=== PATIENT | female | born 1950 | race Two or more races ===

== ENCOUNTER 2016-11-08 07:57 | Inpatient (IN) | payer MEDICARE ==
[~2016-11-08] VITALS: Ht 152.4 cm; Wt 66.7 kg
[2016-11-08] MEDS ORDERED: fentaNYL 100 mcg/2 mL IV ONE (08:30)
[2016-11-08 08:35] LABS: MEAN CORPUSCULAR HEMOGLOBIN 30.3 PG (27.0-31.0); MEAN CORPUSCULAR HGB CONC 32.7 G/DL (32.0-36.0); MEAN CORPUSCULAR VOLUME 93 FL (80-99); PLATELET COUNT 198 K/UL (150-450); RED BLOOD COUNT 4.69 M/UL (4.20-5.40); RED CELL DISTRIBUTION WIDTH 12.4 % (11.6-14.8); WHITE BLOOD COUNT 9.6 K/UL (4.8-10.8)
[2016-11-08] MEDS ORDERED: OMEPRAZOLE10 M1 ORAL (08:36)
[2016-11-08 08:51] LABS: ALANINE AMINOTRANSFERASE 188 U/L (3-33); ALBUMIN/GLOBULIN RATIO 1.1 (1.0-2.7); ANION GAP 14 (5-15); ASPARTATE AMINO TRANSFERASE 285 U/L (5-40); CALCIUM 8.8 mg/dL (8.6-10.2); CARBON DIOXIDE 26 mEQ/L (20-30); CHLORIDE 99 mEQ/L (98-107); CREATININE 0.6 mg/dL (0.5-0.9); GLOMERULAR FILTRATION RATE > 60 mL/min (>60); HEMOLYSIS 37; LIPASE 30 U/L (< 60); POTASSIUM 4.1 mEQ/L (3.4-4.9); SODIUM 139 mEQ/L (135-145); TOTAL PROTEIN 7.6 g/dL (6.6-8.7)
[2016-11-08 08:57] LABS: TROPONIN I < 0.30 ng/mL (<=0.30)
[2016-11-08 09:01] VITALS: BP 155/64
--- NOTE | 2016-11-08 09:04 | Emergency Room Report ---
History of Present Illness General Chief Complaint: Abdominal Pain Source: Patient, Family Member Present Illness HPI 66YOF walk-in with 1 day of "not feeling well" including 1x nausea/vomiting, epigastric pain radiating up her chest and to her back. No fever/chills, cough , chest pain, SOB, urinary complaints, diarrhea, sick contacts, foreign travel. Endoscopy 1 year ago showed gastritis. Has taken omeprazole intermittently. Doesnt eat spicy food. S/p appendectomy distantly. Allergies: Coded Allergies: No Known Allergies (Unverified , 11/08/16) Patient History Past Medical History: other - gastritis, cholelithiasis Past Surgical History: appy, other - "ovarian surgery" Pertinent Family History: none Social History: Denies: alcohol use, drug use, smoking Now: No Nursing Documentation-[facility] Past Medical History: No History, Except For Hx Gastrointestinal Problems: Yes - GERD Review of Systems All Other Systems: negative except mentioned in HPI Physical Exam Vital Signs Date Time Temp Pulse Resp B/P Pulse Ox O2 Delivery O2 Flow Rate FiO2 11/08/16 08:02 97.7 72 17 155/80 98 Room Air Sp02 EP Interpretation: reviewed, abnormal General Appearance: normal inspection, well appearing, alert, GCS 15, non-toxic , mild distress, other - eyes closes, rubbing stomach, writhing Head: normocephalic, atraumatic Eyes: bilateral eye EOMI, bilateral eye PERRL ENT: normal ENT inspection, hearing grossly normal, normal voice Neck: normal inspection, full range of motion, supple, no bony tend Respiratory: normal inspection, lungs clear, normal breath sounds, no respiratory distress, no retraction, no wheezing Cardiovascular #1: regular rate, rhythm, no edema Gastrointestinal: normal inspection, normal bowel sounds, soft, no guarding, no hernia, no pulsatile mass, no rebound, other - Mild ttp epigastrium Genitourinary: no CVA tenderness Musculoskeletal: normal inspection, back normal, normal range of motion, Ney' s Sign negative Neurologic: normal inspection, alert, oriented x3, responsive, 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 I attest that this information is true, accurate and complete to the best of my knowledge. I understand that any falsification, omission, or concealment of material fact may subject me to administrative, civil, or criminal liability. This patient warrants hospital admission for extreme of age and has a condition that cannot be treated as outpatient. Diagnostic Impression: Primary Impression: Abdominal pain Qualified Codes: R10.13 - Epigastric pain Additional Impression: Cholecystitis ER Course 66YOF with epigastric pain for 1 day. VS notable for hypertension. Afebrile. Focal ttp on abd exam DDx includes gastritis, acute laura, cholelithiasis, colitis, ACS PLAN: Labs, IVF, analgesia, Abd sono, reassess Abd pain, nausea/vomiting - Afebrile. No leukocytosis - Elevated LFTs - + sonographic Olmos's sign and multiple gallstones on official sono and CBD 9mm. - Abx given - Blood Cx given - Dr Elias consulted for evaluation Endorsed to Dr Sheriff for med/surg admission at 1204pm. Last Vital Signs Date Time Temp Pulse Resp B/P Pulse Ox O2 Delivery O2 Flow Rate FiO2 11/08/16 08:02 97.7 72 17 155/80 98 Room Air Status: improved Disposition: HOME, SELF-CARE Referrals: NOT CHOSEN IPA/,REFERRING (PCP) JAYJAY BILLINGSLEY M.D. November 08, 2016 09:04
[2016-11-08 09:11] LABS: BILIRUBIN,DIRECT 0.6 mg/dL (0.1-0.3)
[2016-11-08 09:33] LABS: BAND NEUTROPHILS % (MANUAL) 0 % (0-8); BASOPHILS % (MANUAL) 0 % (0-2); EOSINOPHILS % (MANUAL) 0 % (0-3); LYMPHOCYTES % (MANUAL) 11 % (20-45); NEUTROPHILS % (MANUAL) 87 % (45-75); PLATELET ESTIMATE ADEQUATE; PLATELET MORPHOLOGY NORMAL; TOTAL CELLS COUNTED 100
[2016-11-08 10:00] VITALS: BP 142/53
[2016-11-08] MEDS ORDERED: Piperacillin/Tazobactam 3.375 GM in NS 110 ML IVPB ONE (10:30)
[2016-11-08 11:01] LABS: APPEARANCE,URINE SLIGHTLY CLOUDY; KETONES,URINE 1+ (NEGATIVE); LEUKOCYTE ESTERASE ,URINE 1+ (NEGATIVE); NITRITE,URINE NEGATIVE (NEGATIVE); PH,URINE 8 (4.5-8.0); PROTEIN,URINE NEGATIVE (NEGATIVE); UROBILINOGEN,URINE 1 MG/DL (0.0-1.0)
[2016-11-08] MEDS ORDERED: Zosyn 3.375gm inj ONE (11:04)
[2016-11-08] MEDS ORDERED: NS 110 ML ONE (11:04)
[2016-11-08 11:10] LABS: AMORPHOUS SEDIMENT,UR FEW /LPF; BACTERIA,URINE FEW /HPF; MUCUS,URINE FEW /LPF (NONE/OCC); SQUAMOUS EPITHELIAL CELL,UR FEW /LPF (NONE/OCC)
--- NOTE | 2016-11-08 11:55 | Diagnostic Imaging Report ---
Indication: Abdominal pain Technique: Peraza-scale and duplex images of the upper abdomen were obtained Comparison: None Findings: Gallbladder demonstrates gallstones. No gallbladder wall thickening or pericholecystic fluid. Sonographic Olmos's sign is positive, per technologist. Common bile duct measures 9 mm in diameter. No intrahepatic biliary ductal dilatation. Liver demonstrates diffusely increased echogenicity, consistent with diffuse hepatocellular disease, most likely fatty change. There is focal sparing in the usual location adjacent the gallbladder fossa. No focal abnormality. Portal vein and hepatic veins are patent. Pancreas is unremarkable. Spleen is unremarkable. Left kidney measures 10.2 cm in length. Right kidney measures 11.3 cm length. Both kidneys demonstrate normal echogenicity. There is no hydronephrosis. No focal abnormality . Non-aneurysmal abdominal aorta . No free intraperitoneal fluid Impression: Cholelithiasis. Positive sonographic Olmos's sign raises possibility of acute cholecystitis. Consider nuclear medicine hepatobiliary scan for further evaluation as clinically indicated Mild extrahepatic biliary ductal dilatation. Downstream obstruction not completely excludable. Correlate with liver function tests, consider MRCP further evaluation as clinically indicated Liver demonstrates diffusely increased echogenicity, consistent with diffuse hepatocellular disease, most likely fatty change.
[2016-11-08] MEDS ORDERED: Morphine Sulfate 2mg/ml Inj IVP PRN (12:15)
[2016-11-08] MEDS ORDERED: Mylanta II UD 30ml ORAL PRN (12:15)
[2016-11-08] MEDS ORDERED: Nitroglycerin Subl 0.4mg tab (Bottle Of 25) SL PRN (12:15)
[2016-11-08 12:22] VITALS: BP 126/60
--- NOTE | 2016-11-08 13:22 | Consultation ---
History of Present Illness General Date patient seen: November 08, 2016 Chief Complaint: Abdominal Pain Reason for Consultation: abdominal pain Present Illness HPI 66F presented to ED complaining of acute onset epigastric / RUQ abdominal pain x 1-2 days. As per patient, she was in her normal state of health until 2 days ago when she started feeling a little unwell. Then 1 day ago while having a large meal she developed acute epigastric and RUQ abdominal pain. Pain described as cramping RUQ pain that was 8/10 at max and intermittent. Pain better with pain medication and worse with palpation. She initially thought it would improve and did not seek medical attention. She went to sleep but work up this morning feeling worse. She then developed nausea and non bloody emesis this AM. She then decided to seek medical attention and came to ED for evaluation. In ED she was noted to have elevated lft's and ultrasound demonstrating stones and +Olmos's. Surgery called to evaluate. Currently no n /v/f/c. Still has some cramping epigastric and RUQ pain but improved since administered pain meds. Last BM this AM and normal. Allergies: Coded Allergies: No Known Allergies (Unverified , 11/08/16) Medication History Scheduled Omeprazole (Omeprazole), Unknown Dose ORAL DAILY, (Reported) Patient History History Provided By: Patient, Family Member Healthcare decision maker Resuscitation status Advanced Directive on File Past Medical/Surgical History Past Medical/Surgical History: (1) Cholecystitis (2) History of appendectomy (3) Abdominal pain Review of Systems Constitutional: Denies: chills, fever, malaise, no symptoms, other, see HPI, sweats, weakness Eye: Denies: acuity changes, blurred vision, discharge, double vision, eye pain , no symptoms, nose congestion, nose pain, other, see HPI, tearing ENT: Denies: ear discharge, ear pain, hearing loss, mouth pain, nasal discharge , no symptoms, nose congestion, nose pain, other, see HPI, throat pain, throat swelling Respiratory: Denies: BECKMAN, cough, no symptoms, orthopnea, other, see HPI, shortness of breath, sputum, stridor, wheezing Gastrointestinal: Reports: abdominal pain, nausea, vomiting Genitourinary: Denies: discharge, dysuria, frequency, hematuria, incontinence, no symptoms, other, pain, retention, see HPI, urgency, vag bleed/dc Musculoskeletal: Denies: back pain, gout, joint pain, joint swelling, muscle pain, muscle stiffness, no symptoms, other, see HPI Skin: Denies: change in color, change in hair/nails, dryness, lesions, no symptoms, other, rash, see HPI Psychiatric: Denies: HI, SI, anxiety, depressed feelings, emotional problems, hallucinations, no symptoms, other, prior hx, see HPI Neurological: Denies: dizziness, focal weakness, headache, no symptoms, numbness, other, paresthesia, see HPI, seizure, syncope, tingling, tremors Endocrine: Denies: excessive sweating, flushing, increased thirst, increased urine, intolerance to temperature, no symptoms, other, see HPI, unexplained weight loss Hematologic/Lymphatic: Denies: anemia, blood clots, diathesis, easy bleeding, easy bruising, no symptoms, other, see HPI, swollen glands All Other Systems: negative except mentioned in HPI Physical Exam General Appearance: WD/WN, no apparent distress, alert Lines, tubes and drains: peripheral HEENT: normocephalic, PERRL Neck: normal inspection Respiratory/Chest: lungs clear, normal breath sounds, no respiratory distress, no accessory muscle use Cardiovascular/Chest: normal peripheral pulses, normal rate, regular rhythm Abdomen: normal bowel sounds, soft, no organomegaly, no mass, tender - RUQ tenderness on exam +Olmos's Extremities: normal range of motion Skin Exam: normal pigmentation 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, alert, oriented x 3 Last 24 Hour Vital Signs Date Time Temp Pulse Resp B/P Pulse Ox O2 Delivery O2 Flow Rate FiO2 11/08/16 12:45 97.7 62 29 126/60 100 Room Air 11/08/16 12:22 62 29 126/60 100 Room Air 11/08/16 10:00 64 16 142/53 99 Room Air 11/08/16 09:24 97.7 11/08/16 09:01 66 14 155/64 100 Room Air 11/08/16 08:02 97.7 72 17 155/80 98 Room Air Laboratory Tests Test 11/08/16 08:25 11/08/16 09:00 White Blood Count 9.6 K/UL (4.8-10.8) Red Blood Count 4.69 M/UL (4.20-5.40) Hemoglobin 14.2 G/DL (12.0-16.0) Hematocrit 43.5 % (37.0-47.0) Mean Corpuscular Volume 93 FL (80-99) Mean Corpuscular Hemoglobin 30.3 PG (27.0-31.0) Mean Corpuscular Hemoglobin Concent 32.7 G/DL (32.0-36.0) Red Cell Distribution Width 12.4 % (11.6-14.8) Platelet Count 198 K/UL (150-450) Mean Platelet Volume 8.0 FL (6.5-10.1) Neutrophils (%) (Auto) % (45.0-75.0) Lymphocytes (%) (Auto) % (20.0-45.0) Monocytes (%) (Auto) % (1.0-10.0) Eosinophils (%) (Auto) % (0.0-3.0) Basophils (%) (Auto) % (0.0-2.0) Differential Total Cells Counted 100 Neutrophils % (Manual) 87 % (45-75) H Lymphocytes % (Manual) 11 % (20-45) L Monocytes % (Manual) 2 % (1-10) Eosinophils % (Manual) 0 % (0-3) Basophils % (Manual) 0 % (0-2) Band Neutrophils 0 % (0-8) Platelet Estimate Adequate Platelet Morphology Normal Red Blood Cell Morphology Normal Sodium Level 139 mEQ/L (135-145) Potassium Level 4.1 mEQ/L (3.4-4.9) Chloride Level 99 mEQ/L (98-107) Carbon Dioxide Level 26 mEQ/L (20-30) Anion Gap 14 (5-15) Blood Urea Nitrogen 14 mg/dL (7-23) Creatinine 0.6 mg/dL (0.5-0.9) Estimat Glomerular Filtration Rate > 60 mL/min (>60) Glucose Level 158 mg/dL (74-106) H Calcium Level 8.8 mg/dL (8.6-10.2) Total Bilirubin 1.2 mg/dL (0.0-1.2) Direct Bilirubin 0.6 mg/dL (0.1-0.3) H Aspartate Amino Transf (AST/SGOT) 285 U/L (5-40) H Alanine Aminotransferase (ALT/SGPT) 188 U/L (3-33) H Alkaline Phosphatase 62 U/L (35-104) Troponin I < 0.30 ng/mL (<=0.30) Total Protein 7.6 g/dL (6.6-8.7) Albumin 4.1 g/dL (3.5-5.2) Globulin 3.5 g/dL Albumin/Globulin Ratio 1.1 (1.0-2.7) Lipase 30 U/L (< 60) Urine Color Yellow Urine Appearance Slightly cloudy Urine pH 8 (4.5-8.0) Urine Specific [place] 1.010 (1.005-1.035) Urine Protein Negative (NEGATIVE) Urine Glucose (UA) Negative (NEGATIVE) Urine Ketones 1+ (NEGATIVE) H Urine Occult Blood 2+ (NEGATIVE) H Urine Nitrite Negative (NEGATIVE) Urine Bilirubin Negative (NEGATIVE) Urine Urobilinogen 1 MG/DL (0.0-1.0) H Urine Leukocyte Esterase 1+ (NEGATIVE) H Urine RBC 2-4 /HPF (0 - 2) H Urine WBC 2-4 /HPF (0 - 2) Urine Squamous Epithelial Cells Few /LPF (NONE/OCC) Urine Amorphous Sediment Few /LPF (NONE) H Urine Bacteria Few /HPF (NONE) Urine Mucus Few /LPF (NONE/OCC) H Height (Feet): 5 Weight (Pounds): 149 Medications Current Medications Medications (Trade) Dose Ordered Sig/Kyle Route PRN Reason Start Time Stop Time Status Last Admin Dose Admin Acetaminophen (Tylenol) 650 mg Q4H PRN ORAL T>100.5 11/08/16 12:15 12/08/16 12:14 Al Hydroxide/Mg Hydroxide (Mylanta II) 30 ml Q6H PRN ORAL dyspepsia 11/08/16 12:15 12/08/16 12:14 Dextrose STAT PRN IV Hypoglycemia 11/08/16 12:15 12/08/16 12:14 Dextrose/Sodium Chloride (D5 0.45% NS) 1,000 ml @ 75 mls/hr [id number] IV 11/08/16 13:00 12/08/16 12:59 Diphenhydramine HCl (Benadryl) 25 mg Q6H PRN ORAL Itching/Pruritis 11/08/16 12:15 12/08/16 12:14 Heparin Sodium (Porcine) (Heparin 5000 units/ml) 5,000 units EVERY 12 HOURS SUBQ 11/08/16 21:00 12/08/16 20:59 Morphine Sulfate (Morphine Sulfate) 2 mg Q4H PRN IVP severe Pain (Pain Scale 7-10) 11/08/16 12:15 11/15/16 12:14 Nitroglycerin (Ntg) 0.4 mg Q5M X 3 DOSES PRN SL Prn Chest Pain 11/08/16 12:15 12/08/16 12:14 Ondansetron HCl (Zofran) 4 mg Q6H PRN IVP Nausea & Vomiting 11/08/16 12:15 12/08/16 12:14 Pantoprazole (Protonix) 40 mg DAILY IVP 11/09/16 09:00 12/09/16 08:59 Piperacillin Sod/ Tazobactam Sod/ Sodium Chloride (Zosyn/Sodium Chloride) 110 ml @ 27.5 mls/hr EVERY 8 HOURS IVPB 11/08/16 14:00 11/15/16 13:59 Polyethylene Glycol (Miralax) 17 gm HSPRN PRN ORAL Constipation 11/08/16 21:00 12/08/16 20:59 Temazepam (Restoril) 15 mg HSPRN PRN ORAL Insomnia 11/08/16 21:00 11/15/16 20:59 Assessment/Plan Problem List: (1) Cholecystitis Assessment & Plan: 66 F w/ acute cholecystitis. Afebrile, HD stable, exam with +Olmos's sign, elevated LFT's, normal lipase. Ultrasound with cholelithiasis. Plan: NPO IV fluids IV Abx Repeat LFT's in AM. if elevated will need further testing. If improved will discuss cholecystectomy with patient. ICD Codes: K81.9 - Cholecystitis, unspecified SNOMED: [id number], [id number] Sudarshan Perez November 08, 2016 13:22
[2016-11-08] MEDS: D5 1/2NS 1,000 ML IV SCH (14:36)
[2016-11-08] MEDS: Piperacillin/Tazobactam 3.375 GM in NS 110 ML IVPB SCH ×2 (14:46→21:56)
[2016-11-08 15:32] LABS: PROTHROMBIN TIME 9.8 SEC (9.30-11.50)
--- NOTE | 2016-11-08 15:43 | GI Initial Consult Note ---
MindiQiana Johnson N.P. 11/08/16 1543: History of Present Illness General Date patient seen: November 08, 2016 Time patient seen: 15:30 Reason for Hospitalization: Abdominal Pain Referring physician: SAFIA POLK Reason for Consultation: abdominal pain Present Illness HPI 66YOF walk-in with 1 day of "not feeling well" including 1x nausea/vomiting, epigastric pain radiating up her chest and to her back. No fever/chills, cough , chest pain, SOB, urinary complaints, diarrhea, sick contacts, foreign travel. Endoscopy 1 year ago showed gastritis. Has taken omeprazole intermittently. Doesn't eat spicy food. S/p appendectomy distantly. HPI as noted above. GI consulted for abdominal pain. As per patient, she was in her normal state of health until 2 days ago when she started feeling a little unwell. Then 1 day ago while having a large meal she developed acute epigastric and RUQ abdominal pain. Pain described as cramping RUQ pain that was 8/10 at max and intermittent. Pain better with pain medication and worse with palpation. She initially thought it would improve and did not seek medical attention. She went to sleep but work up this morning feeling worse. She then developed nausea and non bloody emesis this AM. She then decided to seek medical attention and came to ED for evaluation. In ED she was noted to have elevated lft's and ultrasound demonstrating stones and +Olmos's. Currently no n/v/f/c. Still has some cramping epigastric and RUQ pain but improved since administered pain meds. Last BM this AM and normal. Last colonoscopy 10+ years per patient. Home Meds Reported Medications Omeprazole (OMEPRAZOLE) 10 Mg Capsule., ORAL DAILY, #30 CAP 0 Refills 11/08/16 Med list reviewed/reconciled: Yes Allergies: Coded Allergies: No Known Allergies (Unverified , 11/08/16) Patient History History Provided By: Patient, Medical Record [facility] Narrative Past Medical History: other - gastritis, cholelithiasis Past Surgical History: appy, other - "ovarian surgery" Pertinent Family History: none Social History: Denies: alcohol use, drug use, smoking Now: No Nursing Documentation-PM Past Medical History: No History, Except For Hx Gastrointestinal Problems: Yes - GERD Social History: Denies: alcohol use, drug use, other, smoking Review of Systems All Other Systems: negative except mentioned in HPI Physical Exam Vital Signs Date Time Temp Pulse Resp B/P Pulse Ox O2 Delivery O2 Flow Rate FiO2 11/08/16 08:02 97.7 72 17 155/80 98 Room Air Sp02 EP Interpretation: reviewed Labs Laboratory Tests Test 11/08/16 08:25 11/08/16 09:00 11/08/16 14:40 White Blood Count 9.6 K/UL (4.8-10.8) Red Blood Count 4.69 M/UL (4.20-5.40) Hemoglobin 14.2 G/DL (12.0-16.0) Hematocrit 43.5 % (37.0-47.0) Mean Corpuscular Volume 93 FL (80-99) Mean Corpuscular Hemoglobin 30.3 PG (27.0-31.0) Mean Corpuscular Hemoglobin Concent 32.7 G/DL (32.0-36.0) Red Cell Distribution Width 12.4 % (11.6-14.8) Platelet Count 198 K/UL (150-450) Mean Platelet Volume 8.0 FL (6.5-10.1) Neutrophils (%) (Auto) % (45.0-75.0) Lymphocytes (%) (Auto) % (20.0-45.0) Monocytes (%) (Auto) % (1.0-10.0) Eosinophils (%) (Auto) % (0.0-3.0) Basophils (%) (Auto) % (0.0-2.0) Differential Total Cells Counted 100 Neutrophils % (Manual) 87 % (45-75) H Lymphocytes % (Manual) 11 % (20-45) L Monocytes % (Manual) 2 % (1-10) Eosinophils % (Manual) 0 % (0-3) Basophils % (Manual) 0 % (0-2) Band Neutrophils 0 % (0-8) Platelet Estimate Adequate Platelet Morphology Normal Red Blood Cell Morphology Normal Sodium Level 139 mEQ/L (135-145) Potassium Level 4.1 mEQ/L (3.4-4.9) Chloride Level 99 mEQ/L (98-107) Carbon Dioxide Level 26 mEQ/L (20-30) Anion Gap 14 (5-15) Blood Urea Nitrogen 14 mg/dL (7-23) Creatinine 0.6 mg/dL (0.5-0.9) Estimat Glomerular Filtration Rate > 60 mL/min (>60) Glucose Level 158 mg/dL (74-106) H Calcium Level 8.8 mg/dL (8.6-10.2) Total Bilirubin 1.2 mg/dL (0.0-1.2) Direct Bilirubin 0.6 mg/dL (0.1-0.3) H Aspartate Amino Transf (AST/SGOT) 285 U/L (5-40) H Alanine Aminotransferase (ALT/SGPT) 188 U/L (3-33) H Alkaline Phosphatase 62 U/L (35-104) Troponin I < 0.30 ng/mL (<=0.30) Total Protein 7.6 g/dL (6.6-8.7) Albumin 4.1 g/dL (3.5-5.2) Globulin 3.5 g/dL Albumin/Globulin Ratio 1.1 (1.0-2.7) Lipase 30 U/L (< 60) Urine Color Yellow Urine Appearance Slightly cloudy Urine pH 8 (4.5-8.0) Urine Specific [place] 1.010 (1.005-1.035) Urine Protein Negative (NEGATIVE) Urine Glucose (UA) Negative (NEGATIVE) Urine Ketones 1+ (NEGATIVE) H Urine Occult Blood 2+ (NEGATIVE) H Urine Nitrite Negative (NEGATIVE) Urine Bilirubin Negative (NEGATIVE) Urine Urobilinogen 1 MG/DL (0.0-1.0) H Urine Leukocyte Esterase 1+ (NEGATIVE) H Urine RBC 2-4 /HPF (0 - 2) H Urine WBC 2-4 /HPF (0 - 2) Urine Squamous Epithelial Cells Few /LPF (NONE/OCC) Urine Amorphous Sediment Few /LPF (NONE) H Urine Bacteria Few /HPF (NONE) Urine Mucus Few /LPF (NONE/OCC) H Prothrombin Time 9.8 SEC (9.30-11.50) Prothromb Time International Ratio 1.0 (0.9-1.1) Activated Partial Thromboplast Time 26 SEC (23-33) General Appearance: well appearing, no apparent distress, alert Head: normocephalic EENT: normal ENT inspection Neck: supple Respiratory: normal breath sounds, no respiratory distress Cardiovascular: normal rate Gastrointestinal: tenderness - epigastric/RUQ Rectal: deferred Genitourinary: no CVA tenderness Musculoskeletal: back normal Neurologic: normal inspection, alert, oriented x3, responsive Psychiatric: normal inspection, judgement/insight normal, memory normal Skin: normal inspection, normal color, no rash, warm/dry Lymphatic: normal inspection, no adenopathy Current Medications Current Medications Medications (Trade) Dose Ordered Sig/Kyle Route PRN Reason Start Time Stop Time Status Last Admin Dose Admin Acetaminophen (Tylenol) 650 mg Q4H PRN ORAL T>100.5 11/08/16 12:15 12/08/16 12:14 Al Hydroxide/Mg Hydroxide (Mylanta II) 30 ml Q6H PRN ORAL dyspepsia 11/08/16 12:15 12/08/16 12:14 Dextrose STAT PRN IV Hypoglycemia 11/08/16 12:15 12/08/16 12:14 Dextrose/Sodium Chloride (D5 0.45% NS) 1,000 ml @ 75 mls/hr [id number] IV 11/08/16 13:00 12/08/16 12:59 11/08/16 14:36 Diphenhydramine HCl (Benadryl) 25 mg Q6H PRN ORAL Itching/Pruritis 11/08/16 12:15 12/08/16 12:14 Heparin Sodium (Porcine) (Heparin 5000 units/ml) 5,000 units EVERY 12 HOURS SUBQ 11/08/16 21:00 12/08/16 20:59 Morphine Sulfate (Morphine Sulfate) 2 mg Q4H PRN IVP severe Pain (Pain Scale 7-10) 11/08/16 12:15 11/15/16 12:14 Nitroglycerin (Ntg) 0.4 mg Q5M X 3 DOSES PRN SL Prn Chest Pain 11/08/16 12:15 12/08/16 12:14 Ondansetron HCl (Zofran) 4 mg Q6H PRN IVP Nausea & Vomiting 11/08/16 12:15 12/08/16 12:14 Pantoprazole (Protonix) 40 mg DAILY IVP 11/09/16 09:00 12/09/16 08:59 Piperacillin Sod/ Tazobactam Sod/ Sodium Chloride (Zosyn/Sodium Chloride) 110 ml @ 27.5 mls/hr EVERY 8 HOURS IVPB 11/08/16 14:00 11/15/16 13:59 11/08/16 14:46 Polyethylene Glycol (Miralax) 17 gm HSPRN PRN ORAL Constipation 11/08/16 21:00 12/08/16 20:59 Temazepam (Restoril) 15 mg HSPRN PRN ORAL Insomnia 11/08/16 21:00 11/15/16 20:59 GI: Plan Problems: (1) GERD (gastroesophageal reflux disease) (2) Abdominal pain (3) Cholecystitis (4) History of appendectomy Plan Abdominal U/S >> cholelithiasis exam with +Olmso's sign elevated LFT's normal lipase fu surgical recs maintain NPO + IVFs IV Abx cont ppi monitor LFTs pain mgmt fu labs Discussed with Dr. Fink. Thank you for referring this patient, we will follow. JAVIER FINK 11/09/16 1202: History of Present Illness General Reason for Hospitalization: Abdominal Pain Present Illness Home Meds Reported Medications Omeprazole (OMEPRAZOLE) 10 Mg Capsule., ORAL DAILY, #30 CAP 0 Refills 11/08/16 Allergies: Coded Allergies: No Known Allergies (Unverified , 11/08/16) GI: Plan Plan The patient was seen and examined at bedside and all new and available data was reviewed in the patients chart. I agree with the above findings, impression and plan. (Patient seen earlier today. Signature stamp does not reflect patient encounter time.). -Shaila Marmolejo MDh Alex N.PValeria November 08, 2016 15:43 JAVIER FINK November 09, 2016 12:02
[2016-11-08 16:15] VITALS: BP 134/68
[2016-11-08 20:00] VITALS: BP 122/70
[2016-11-08] MEDS ORDERED: Miralax 17gm pkt ORAL PRN (21:00)
[2016-11-08] MEDS: Heparin 5000 units/ml inj SUBQ SCH (21:00)
--- NOTE | 2016-11-08 23:12 | History and Physical ---
History of Present Illness General Reason for Hospitalization: Abdominal Pain Present Illness Allergies: Coded Allergies: No Known Allergies (Unverified , 11/08/16) Medication History Scheduled Omeprazole (Omeprazole), Unknown Dose ORAL DAILY, (Reported) Patient History Healthcare decision maker spouse Resuscitation status Full Code Advanced Directive on File Physical Exam Last 24 Hour Vital Signs Date Time Temp Pulse Resp B/P Pulse Ox O2 Delivery O2 Flow Rate FiO2 11/08/16 20:00 98.2 75 20 122/70 96 Room Air 11/08/16 16:15 97.1 74 20 134/68 99 Room Air 11/08/16 12:45 97.7 62 29 126/60 100 Room Air 11/08/16 12:22 62 29 126/60 100 Room Air 11/08/16 10:00 64 16 142/53 99 Room Air 11/08/16 09:24 97.7 11/08/16 09:01 66 14 155/64 100 Room Air 11/08/16 08:02 97.7 72 17 155/80 98 Room Air Laboratory Tests Test 11/08/16 08:25 11/08/16 09:00 11/08/16 14:40 White Blood Count 9.6 K/UL (4.8-10.8) Red Blood Count 4.69 M/UL (4.20-5.40) Hemoglobin 14.2 G/DL (12.0-16.0) Hematocrit 43.5 % (37.0-47.0) Mean Corpuscular Volume 93 FL (80-99) Mean Corpuscular Hemoglobin 30.3 PG (27.0-31.0) Mean Corpuscular Hemoglobin Concent 32.7 G/DL (32.0-36.0) Red Cell Distribution Width 12.4 % (11.6-14.8) Platelet Count 198 K/UL (150-450) Mean Platelet Volume 8.0 FL (6.5-10.1) Neutrophils (%) (Auto) % (45.0-75.0) Lymphocytes (%) (Auto) % (20.0-45.0) Monocytes (%) (Auto) % (1.0-10.0) Eosinophils (%) (Auto) % (0.0-3.0) Basophils (%) (Auto) % (0.0-2.0) Differential Total Cells Counted 100 Neutrophils % (Manual) 87 % (45-75) H Lymphocytes % (Manual) 11 % (20-45) L Monocytes % (Manual) 2 % (1-10) Eosinophils % (Manual) 0 % (0-3) Basophils % (Manual) 0 % (0-2) Band Neutrophils 0 % (0-8) Platelet Estimate Adequate Platelet Morphology Normal Red Blood Cell Morphology Normal Sodium Level 139 mEQ/L (135-145) Potassium Level 4.1 mEQ/L (3.4-4.9) Chloride Level 99 mEQ/L (98-107) Carbon Dioxide Level 26 mEQ/L (20-30) Anion Gap 14 (5-15) Blood Urea Nitrogen 14 mg/dL (7-23) Creatinine 0.6 mg/dL (0.5-0.9) Estimat Glomerular Filtration Rate > 60 mL/min (>60) Glucose Level 158 mg/dL (74-106) H Calcium Level 8.8 mg/dL (8.6-10.2) Total Bilirubin 1.2 mg/dL (0.0-1.2) Direct Bilirubin 0.6 mg/dL (0.1-0.3) H Aspartate Amino Transf (AST/SGOT) 285 U/L (5-40) H Alanine Aminotransferase (ALT/SGPT) 188 U/L (3-33) H Alkaline Phosphatase 62 U/L (35-104) Troponin I < 0.30 ng/mL (<=0.30) Total Protein 7.6 g/dL (6.6-8.7) Albumin 4.1 g/dL (3.5-5.2) Globulin 3.5 g/dL Albumin/Globulin Ratio 1.1 (1.0-2.7) Lipase 30 U/L (< 60) Urine Color Yellow Urine Appearance Slightly cloudy Urine pH 8 (4.5-8.0) Urine Specific [place] 1.010 (1.005-1.035) Urine Protein Negative (NEGATIVE) Urine Glucose (UA) Negative (NEGATIVE) Urine Ketones 1+ (NEGATIVE) H Urine Occult Blood 2+ (NEGATIVE) H Urine Nitrite Negative (NEGATIVE) Urine Bilirubin Negative (NEGATIVE) Urine Urobilinogen 1 MG/DL (0.0-1.0) H Urine Leukocyte Esterase 1+ (NEGATIVE) H Urine RBC 2-4 /HPF (0 - 2) H Urine WBC 2-4 /HPF (0 - 2) Urine Squamous Epithelial Cells Few /LPF (NONE/OCC) Urine Amorphous Sediment Few /LPF (NONE) H Urine Bacteria Few /HPF (NONE) Urine Mucus Few /LPF (NONE/OCC) H Prothrombin Time 9.8 SEC (9.30-11.50) Prothromb Time International Ratio 1.0 (0.9-1.1) Activated Partial Thromboplast Time 26 SEC (23-33) Height (Feet): 5 Weight (Pounds): 147 Medications Current Medications Medications (Trade) Dose Ordered Sig/Kyle Route PRN Reason Start Time Stop Time Status Last Admin Dose Admin Acetaminophen (Tylenol) 650 mg Q4H PRN ORAL T>100.5 11/08/16 12:15 12/08/16 12:14 Al Hydroxide/Mg Hydroxide (Mylanta II) 30 ml Q6H PRN ORAL dyspepsia 11/08/16 12:15 12/08/16 12:14 Dextrose STAT PRN IV Hypoglycemia 11/08/16 12:15 12/08/16 12:14 Dextrose/Sodium Chloride (D5 0.45% NS) 1,000 ml @ 75 mls/hr [id number] IV 11/08/16 13:00 12/08/16 12:59 11/08/16 14:36 Diphenhydramine HCl (Benadryl) 25 mg Q6H PRN ORAL Itching/Pruritis 11/08/16 12:15 12/08/16 12:14 Heparin Sodium (Porcine) (Heparin 5000 units/ml) 5,000 units EVERY 12 HOURS SUBQ 11/08/16 21:00 12/08/16 20:59 Morphine Sulfate (Morphine Sulfate) 2 mg Q4H PRN IVP severe Pain (Pain Scale 7-10) 11/08/16 12:15 11/15/16 12:14 Nitroglycerin (Ntg) 0.4 mg Q5M X 3 DOSES PRN SL Prn Chest Pain 11/08/16 12:15 12/08/16 12:14 Ondansetron HCl (Zofran) 4 mg Q6H PRN IVP Nausea & Vomiting 11/08/16 12:15 12/08/16 12:14 Pantoprazole (Protonix) 40 mg DAILY IVP 11/09/16 09:00 12/09/16 08:59 Piperacillin Sod/ Tazobactam Sod/ Sodium Chloride (Zosyn/Sodium Chloride) 110 ml @ 27.5 mls/hr EVERY 8 HOURS IVPB 11/08/16 14:00 11/15/16 13:59 11/08/16 21:56 Polyethylene Glycol (Miralax) 17 gm HSPRN PRN ORAL Constipation 11/08/16 21:00 12/08/16 20:59 Temazepam (Restoril) 15 mg HSPRN PRN ORAL Insomnia 11/08/16 21:00 11/15/16 20:59 SAFIA LORA November 08, 2016 23:12
[2016-11-09] MEDS: D5 1/2NS 1,000 ML IV SCH ×2 (02:20→15:14)
[2016-11-09] MEDS: Piperacillin/Tazobactam 3.375 GM in NS 110 ML IVPB SCH ×3 (05:58→21:22)
[2016-11-09 06:44] LABS: BASOPHILS % (AUTO) 0.8 % (0.0-2.0); EOSINOPHILS % (AUTO) 1.2 % (0.0-3.0); LYMPHOCYTES % (AUTO) 21.4 % (20.0-45.0); MEAN CORPUSCULAR HGB CONC 33.3 G/DL (32.0-36.0); MEAN CORPUSCULAR VOLUME 93 FL (80-99); MEAN PLATELET VOLUME 8.6 FL (6.5-10.1); MONOCYTES % (AUTO) 4.2 % (1.0-10.0); NEUTROPHILS % (AUTO) 72.5 % (45.0-75.0); PLATELET COUNT 186 K/UL (150-450); RED BLOOD COUNT 4.25 M/UL (4.20-5.40); RED CELL DISTRIBUTION WIDTH 12.3 % (11.6-14.8); WHITE BLOOD COUNT 5.4 K/UL (4.8-10.8)
[2016-11-09] MEDS: Heparin 5000 units/ml inj SUBQ SCH ×2 (08:03→21:21)
[2016-11-09] MEDS: Pantoprazole Inj IVP SCH (08:03)
[2016-11-09 08:06] LABS: ALBUMIN/GLOBULIN RATIO 1.2 (1.0-2.7); AMYLASE 183 U/L (10-110); ANION GAP 14 (5-15); ASPARTATE AMINO TRANSFERASE 744 U/L (5-40); CALCIUM 8.5 mg/dL (8.6-10.2); CARBON DIOXIDE 24 mEQ/L (20-30); CHLORIDE 102 mEQ/L (98-107); CREATININE 0.6 mg/dL (0.5-0.9); GLOMERULAR FILTRATION RATE > 60 mL/min (>60); HEMOLYSIS 10; LIPASE 54 U/L (< 60); POTASSIUM 3.7 mEQ/L (3.4-4.9); SODIUM 140 mEQ/L (135-145); TOTAL PROTEIN 6.5 g/dL (6.6-8.7)
[2016-11-09 08:17] VITALS: BP 113/68
[2016-11-09 08:21] LABS: BILIRUBIN,DIRECT 0.4 mg/dL (0.1-0.3)
[2016-11-09 08:22] LABS: ALANINE AMINOTRANSFERASE 939 U/L (3-33)
[2016-11-09 08:48] VITALS: BP 113/68
--- NOTE | 2016-11-09 11:09 | Consultation ---
Consult Note Consult Note ID Dic # [id number] EMA HILLMAN M.D. November 09, 2016 11:09
--- NOTE | 2016-11-09 11:54 | General Progress Note ---
Progress Note Progress Note Pt just went to MRI for MRCP. Nurse says pt. has no pain,no jaundice, no N/V. LFT'S show increase in Tot. Bili to 1.6 (from 1.4, also continued elevation of transaminases , and no significant direct Bili to support obstructive jaundice. ( Hepatitis)?? Will wait for result of MRCP before any recommendations. FLAQUITO EMANUEL November 09, 2016 11:54
--- NOTE | 2016-11-09 11:55 | General Progress Note ---
Progress Note Progress Note o further bleeding, colonoscopy shows diverticulosis, no mass. Hg 11. Nothing surgical at this time. FLAQUITO EMANUEL November 09, 2016 11:55
[2016-11-09 12:15] VITALS: BP 120/56
--- NOTE | 2016-11-09 13:37 | GI Progress Note ---
Assessment/Plan Problems: (1) Elevated amylase ICD Codes: R74.8 - Abnormal levels of other serum enzymes SNOMED: 654447483 (2) Elevated LFTs ICD Codes: R94.5 - Abnormal results of liver function studies SNOMED: 050088582 (3) Cholecystitis ICD Codes: K81.9 - Cholecystitis, unspecified SNOMED: 45788176, 80833626 (4) Abdominal pain ICD Codes: R10.9 - Unspecified abdominal pain SNOMED: 12558843 Qualifiers: Qualified Codes: R10.13 - Epigastric pain (5) GERD (gastroesophageal reflux disease) ICD Codes: K21.9 - Gastro-esophageal reflux disease without esophagitis SNOMED: 222354291 (6) History of appendectomy ICD Codes: Z90.49 - Acquired absence of other specified parts of digestive tract SNOMED: 268249277 Status: unchanged Status Narrative Discussed with Dr. Christensen. Assessment/Plan Abdominal U/S >> cholelithiasis exam with +Olmos's sign elevated LFT's elevated amylase/normal lipase fu surgical recs >> defer surgical procedures at this time and fu MRCP CLD, NPO @ [facility] for possible ERCP tomorrow. IV Abx cont ppi monitor LFTs >> rising pain mgmt fu hep panel fu labs Subjective Gastrointestinal/Abdominal: Reports: abdominal pain Objective Last 24 Hour Vital Signs Date Time Temp Pulse Resp B/P Pulse Ox O2 Delivery O2 Flow Rate FiO2 11/09/16 12:15 97.7 71 22 120/56 98 Room Air 11/09/16 08:48 97.5 66 15 113/68 98 Room Air 11/09/16 08:17 97.5 66 21 113/68 98 Room Air 11/08/16 20:00 98.2 75 20 122/70 96 Room Air 11/08/16 16:15 97.1 74 20 134/68 99 Room Air Intake and Output 11/08/16 11/09/16 19:00 07:00 Intake Total 110 ml 27.5 ml Balance 110 ml 27.5 ml Intake IV Total 110 ml 27.5 ml # Voids 1 2 # Bowel Movements 1 Laboratory Tests Test 11/08/16 14:40 11/09/16 05:45 Prothrombin Time 9.8 SEC (9.30-11.50) Prothromb Time International Ratio 1.0 (0.9-1.1) Activated Partial Thromboplast Time 26 SEC (23-33) 27 SEC (23-33) White Blood Count 5.4 K/UL (4.8-10.8) Red Blood Count 4.25 M/UL (4.20-5.40) Hemoglobin 13.2 G/DL (12.0-16.0) Hematocrit 39.6 % (37.0-47.0) Mean Corpuscular Volume 93 FL (80-99) Mean Corpuscular Hemoglobin 31.0 PG (27.0-31.0) Mean Corpuscular Hemoglobin Concent 33.3 G/DL (32.0-36.0) Red Cell Distribution Width 12.3 % (11.6-14.8) Platelet Count 186 K/UL (150-450) Mean Platelet Volume 8.6 FL (6.5-10.1) Neutrophils (%) (Auto) 72.5 % (45.0-75.0) Lymphocytes (%) (Auto) 21.4 % (20.0-45.0) Monocytes (%) (Auto) 4.2 % (1.0-10.0) Eosinophils (%) (Auto) 1.2 % (0.0-3.0) Basophils (%) (Auto) 0.8 % (0.0-2.0) Sodium Level 140 mEQ/L (135-145) Potassium Level 3.7 mEQ/L (3.4-4.9) Chloride Level 102 mEQ/L (98-107) Carbon Dioxide Level 24 mEQ/L (20-30) Anion Gap 14 (5-15) Blood Urea Nitrogen 8 mg/dL (7-23) Creatinine 0.6 mg/dL (0.5-0.9) Estimat Glomerular Filtration Rate > 60 mL/min (>60) Glucose Level 112 mg/dL (74-106) H Calcium Level 8.5 mg/dL (8.6-10.2) L Total Bilirubin 1.4 mg/dL (0.0-1.2) H Direct Bilirubin 0.4 mg/dL (0.1-0.3) H Aspartate Amino Transf (AST/SGOT) 744 U/L (5-40) H Alanine Aminotransferase (ALT/SGPT) 939 U/L (3-33) H Alkaline Phosphatase 82 U/L (35-104) Total Protein 6.5 g/dL (6.6-8.7) L Albumin 3.6 g/dL (3.5-5.2) Globulin 2.9 g/dL Albumin/Globulin Ratio 1.2 (1.0-2.7) Amylase Level 183 U/L (10-110) H Lipase 54 U/L (< 60) Hepatitis A IgM Antibody Pending Hepatitis B Surface Antigen Pending Hepatitis B Core IgM Antibody Pending Hepatitis C Antibody Pending Height (Feet): 5 Weight (Pounds): 147 General Appearance: no apparent distress, alert Cardiovascular: normal rate Respiratory/Chest: normal breath sounds Abdominal Exam: normal bowel sounds, non tender, soft Extremities: normal range of motion Qiana Obregon N.P. November 09, 2016 13:37
--- NOTE | 2016-11-09 13:44 | Diagnostic Imaging Report ---
Indication: Abnormal liver function tests, right upper quadrant abdominal pain Technique: Axial single shot fast spin echo breath hold, coronal single shot fast spin-echo breath hold, axial T2 FRFSE fat-saturated, 2-D thick slab MRCP, axial 2-D FIESTA fat-saturated, axial 3-D dual echo breath-hold, precontrast axial and postcontrast axial and coronal water weighted axial LAVA FLEX images of the abdomen Comparison: Reference made to ultrasound 11/08/2016 Findings: The gallbladder is filled with gallstones. There is equivocal mild thickening and edema of the gallbladder wall, but no pericholecystic inflammation. The common bile duct is ectatic, measuring 9 mm in diameter. No filling defects or other findings to suggest choledocholithiasis are evident. Pancreatic duct is mildly ectatic, measuring up to 4 mm in diameter. The liver demonstrates a cyst in segment 3. It is otherwise unremarkable. The pancreas, spleen, adrenals, kidneys are all unremarkable. The included bowel is unremarkable. Impression: Mildly dilated extrahepatic bile ducts, but no evidence of choledocholithiasis or downstream obstruction lesion. Significance therefore uncertain. Choledocholithiasis. There is evidence of some gallbladder wall thickening although no definite pericholecystic inflammation. Acute cholecystitis is not completely excludable. Consider nuclear medicine hepatobiliary scan for further evaluation as clinically indicated Nonspecific slight ectasia of the pancreatic duct Incidental finding of left lobe liver cyst
--- NOTE | 2016-11-09 15:23 | Pulmonology Progress Note ---
Assessment/Plan Problems: (1) Cholecystitis (2) Elevated LFTs (3) History of appendectomy Assessment/Plan NPO Iv fluids continue antibiotics Negative ERCP fo rCBD stone surgical f/u Subjective ROS Limited/Unobtainable: No Constitutional: Reports: no symptoms Respiratory: Reports: no symptoms Allergies: Coded Allergies: No Known Allergies (Unverified , 11/08/16) Objective Last 24 Hour Vital Signs Date Time Temp Pulse Resp B/P Pulse Ox O2 Delivery O2 Flow Rate FiO2 11/09/16 12:15 97.7 71 22 120/56 98 Room Air 11/09/16 08:48 97.5 66 15 113/68 98 Room Air 11/09/16 08:17 97.5 66 21 113/68 98 Room Air 11/08/16 20:00 98.2 75 20 122/70 96 Room Air 11/08/16 16:15 97.1 74 20 134/68 99 Room Air Intake and Output 11/08/16 11/09/16 19:00 07:00 Intake Total 110 ml 27.5 ml Balance 110 ml 27.5 ml Intake IV Total 110 ml 27.5 ml # Voids 1 2 # Bowel Movements 1 General Appearance: WD/WN HEENT: normocephalic, atraumatic Respiratory/Chest: chest wall non-tender, lungs clear Cardiovascular: normal peripheral pulses, normal rate Abdomen: normal bowel sounds, soft, non tender Genitourinary: normal external genitalia Extremities: no cyanosis Skin: no rash 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: ham stringer II-XII grossly normal, abnormal gait, normal mood/ affect Lymphatic: no neck adenopathy, no groin adenopathy Laboratory Tests 11/09/16 05:45: White Blood Count 5.4, Red Blood Count 4.25, Hemoglobin 13.2, Hematocrit 39.6, Mean Corpuscular Volume 93, Mean Corpuscular Hemoglobin 31.0, Mean Corpuscular Hemoglobin Concent 33.3, Red Cell Distribution Width 12.3, Platelet Count 186, Mean Platelet Volume 8.6, Neutrophils (%) (Auto) 72.5, Lymphocytes (%) (Auto) 21.4, Monocytes (%) (Auto) 4.2, Eosinophils (%) (Auto) 1.2, Basophils (%) (Auto ) 0.8, Activated Partial Thromboplast Time 27, Sodium Level 140, Potassium Level 3.7, Chloride Level 102, Carbon Dioxide Level 24, Anion Gap 14, Blood Urea Nitrogen 8, Creatinine 0.6, Estimat Glomerular Filtration Rate > 60, Glucose Level 112H, Calcium Level 8.5L, Total Bilirubin 1.4H, Direct Bilirubin 0.4H, Aspartate Amino Transf (AST/SGOT) 744H, Alanine Aminotransferase (ALT/SGPT ) 939H, Alkaline Phosphatase 82, Total Protein 6.5L, Albumin 3.6, Globulin 2.9, Albumin/Globulin Ratio 1.2, Amylase Level 183H, Lipase 54, Hepatitis A IgM Antibody [Pending], Hepatitis B Surface Antigen [Pending], Hepatitis B Core IgM Antibody [Pending], Hepatitis C Antibody [Pending] Current Medications Medications (Trade) Dose Ordered Sig/Kyle Route PRN Reason Start Time Stop Time Status Last Admin Dose Admin Acetaminophen (Tylenol) 650 mg Q4H PRN ORAL T>100.5 11/08/16 12:15 12/08/16 12:14 Al Hydroxide/Mg Hydroxide (Mylanta II) 30 ml Q6H PRN ORAL dyspepsia 11/08/16 12:15 12/08/16 12:14 Dextrose STAT PRN IV Hypoglycemia 11/08/16 12:15 12/08/16 12:14 Dextrose/Sodium Chloride (D5 0.45% NS) 1,000 ml @ 75 mls/hr [id number] IV 11/08/16 13:00 12/08/16 12:59 11/08/16 14:36 Diphenhydramine HCl (Benadryl) 25 mg Q6H PRN ORAL Itching/Pruritis 11/08/16 12:15 12/08/16 12:14 Heparin Sodium (Porcine) (Heparin 5000 units/ml) 5,000 units EVERY 12 HOURS SUBQ 11/08/16 21:00 12/08/16 20:59 Morphine Sulfate (Morphine Sulfate) 2 mg Q4H PRN IVP severe Pain (Pain Scale 7-10) 11/08/16 12:15 11/15/16 12:14 Nitroglycerin (Ntg) 0.4 mg Q5M X 3 DOSES PRN SL Prn Chest Pain 11/08/16 12:15 12/08/16 12:14 Ondansetron HCl (Zofran) 4 mg Q6H PRN IVP Nausea & Vomiting 11/08/16 12:15 12/08/16 12:14 Pantoprazole (Protonix) 40 mg DAILY IVP 11/09/16 09:00 12/09/16 08:59 11/09/16 08:03 Piperacillin Sod/ Tazobactam Sod/ Sodium Chloride (Zosyn/Sodium Chloride) 110 ml @ 27.5 mls/hr EVERY 8 HOURS IVPB 11/08/16 14:00 11/15/16 13:59 11/09/16 14:00 Polyethylene Glycol (Miralax) 17 gm HSPRN PRN ORAL Constipation 11/08/16 21:00 12/08/16 20:59 Temazepam (Restoril) 15 mg HSPRN PRN ORAL Insomnia 11/08/16 21:00 11/15/16 20:59 SAFIA LORA November 09, 2016 15:23
[2016-11-09 16:06] VITALS: BP 126/73
--- NOTE | 2016-11-09 18:32 | Consultation ---
DATE OF CONSULTATION: INFECTIOUS DISEASE CONSULTATION CONSULTING PHYSICIAN: Michael Santiago M.D. REFERRING PHYSICIAN: Kaitlynn Sheriff M.D. REASON FOR CONSULTATION: Evaluation of the patient for cholecystitis. HISTORY OF PRESENT ILLNESS: The patient is a 66-year-old female, with multiple medical problems, as listed below, who was admitted to this medical center because of abdominal pain. The patient was found to have abnormal liver functions. Ultrasound of the abdomen was positive for cholelithiasis and also the patient was found to have Olmos's sign. GI and surgical consultation is following. Infectious Disease consultation has been requested for further evaluation of the patient and antibiotic management. PAST MEDICAL HISTORY: GERD. MEDICATIONS: On Zosyn. ALLERGIES: No known drug allergies. SOCIAL HISTORY: Negative for alcohol, drug abuse, and smoking. FAMILY HISTORY: Noncontributory. PHYSICAL EXAMINATION: VITAL SIGNS: Pulse 86, respiratory rate 18, temperature 97.5 degrees, and blood pressure 113/68. HEENT: Mild pale conjunctivae. No icterus. NECK: No lymphadenopathy. CHEST: Coarse breathing sounds. HEART: S1 and S2. ABDOMEN: Soft. The patient has right upper quadrant tenderness with positive Olmos's sign with inspiration. EXTREMITIES: No cyanosis. NEUROLOGIC: Awake and alert. LABORATORY DATA: White blood cells 5.4, hemoglobin 13, and platelets 186,000. UA, unremarkable. AST 744, ALT 933, and alkaline phosphatase 82. Hepatitis panel is pending. Ultrasound of the abdomen, as mentioned above. MRCP is pending. ASSESSMENT: The patient is a 66-year-old female with multiple medical problems, as listed above, who has abnormal liver functions and right upper quadrant pain due to positive Olmos's sign. Ultrasound showed cholelithiasis and the patient's magnetic resonance cholangiopancreatography is pending. PLAN: 1. We will continue the patient on IV Zosyn. 2. Monitor CBC. 3. Monitor BMP. 4. Monitor cultures (blood). 5. Monitor liver function tests. 6. We will follow GI and surgical recommendations. 7. We will follow MRCP findings. 8. Based on the patient's clinical course and labs, we will do further recommendations. Thank you, Dr. Sheriff, for allowing me to participate in the care of this patient. I will follow the patient with you during this hospitalization. Michael Santiago M.D. DR: SHIRLEY JOB#: [id number] CC:
[2016-11-09 21:00] VITALS: BP 127/74
[2016-11-10] VITALS (7 sets, daily range): BP systolic 119–133; BP diastolic 65–78
[2016-11-10] MEDS: D5 1/2NS 1,000 ML IV SCH ×3 (04:58→18:10)
[2016-11-10] MEDS: Piperacillin/Tazobactam 3.375 GM in NS 110 ML IVPB SCH ×3 (05:34→21:58)
[2016-11-10 06:57] LABS: BASOPHILS % (AUTO) 1.1 % (0.0-2.0); EOSINOPHILS % (AUTO) 2.9 % (0.0-3.0); LYMPHOCYTES % (AUTO) 31.8 % (20.0-45.0); MEAN CORPUSCULAR HEMOGLOBIN 30.9 PG (27.0-31.0); MEAN CORPUSCULAR HGB CONC 33.3 G/DL (32.0-36.0); MEAN CORPUSCULAR VOLUME 93 FL (80-99); MEAN PLATELET VOLUME 7.4 FL (6.5-10.1); MONOCYTES % (AUTO) 5.5 % (1.0-10.0); NEUTROPHILS % (AUTO) 58.6 % (45.0-75.0); PLATELET COUNT 182 K/UL (150-450); RED BLOOD COUNT 4.09 M/UL (4.20-5.40); RED CELL DISTRIBUTION WIDTH 12.5 % (11.6-14.8)
[2016-11-10 07:09] LABS: ALANINE AMINOTRANSFERASE 582 U/L (3-33); ALBUMIN/GLOBULIN RATIO 1.2 (1.0-2.7); ANION GAP 13 (5-15); ASPARTATE AMINO TRANSFERASE 215 U/L (5-40); CALCIUM 8.5 mg/dL (8.6-10.2); CARBON DIOXIDE 25 mEQ/L (20-30); CHLORIDE 103 mEQ/L (98-107); CREATININE 0.5 mg/dL (0.5-0.9); GLOMERULAR FILTRATION RATE > 60 mL/min (>60); HEMOLYSIS 3; POTASSIUM 3.4 mEQ/L (3.4-4.9); SODIUM 141 mEQ/L (135-145); TOTAL PROTEIN 6.4 g/dL (6.6-8.7)
[2016-11-10] MEDS: Pantoprazole Inj IVP SCH (08:08)
[2016-11-10] MEDS: Heparin 5000 units/ml inj SUBQ SCH (08:18)
--- NOTE | 2016-11-10 10:20 | General Surgery Progress Note ---
General Surgery-Progress Note Subjective Symptoms: improved, pain absent, tolerating diet, passing flatus, BM Additional Comments patient seen and examined at bedside. no acute events. pain resolved. no n/v/ f/c. MRCP reviewed and no biliary obstruction but cholelithiasis and thickening. Objective Last 24 Hour Vital Signs Date Time Temp Pulse Resp B/P Pulse Ox O2 Delivery O2 Flow Rate FiO2 11/10/16 08:15 97.7 67 22 119/67 99 Room Air 11/10/16 04:00 97.4 69 18 119/69 96 Room Air 11/10/16 00:00 96.9 71 20 121/69 97 Room Air 11/09/16 21:00 98.4 68 18 127/74 Room Air 11/09/16 16:06 98.7 67 22 126/73 99 Room Air 11/09/16 12:15 97.7 71 22 120/56 98 Room Air I&O Intake and Output 11/09/16 11/10/16 19:00 07:00 Intake Total 822.5 ml 1052.5 ml Balance 822.5 ml 1052.5 ml Intake Oral 480 ml 540 ml IV Total 342.5 ml 512.5 ml # Voids 2 5 Cardiovascular: RSR Respiratory: clear Abdomen: soft, non-tender, present bowel sounds Laboratory Tests Test 11/10/16 05:43 White Blood Count 5.0 K/UL (4.8-10.8) Red Blood Count 4.09 M/UL (4.20-5.40) L Hemoglobin 12.6 G/DL (12.0-16.0) Hematocrit 37.9 % (37.0-47.0) Mean Corpuscular Volume 93 FL (80-99) Mean Corpuscular Hemoglobin 30.9 PG (27.0-31.0) Mean Corpuscular Hemoglobin Concent 33.3 G/DL (32.0-36.0) Red Cell Distribution Width 12.5 % (11.6-14.8) Platelet Count 182 K/UL (150-450) Mean Platelet Volume 7.4 FL (6.5-10.1) Neutrophils (%) (Auto) 58.6 % (45.0-75.0) Lymphocytes (%) (Auto) 31.8 % (20.0-45.0) Monocytes (%) (Auto) 5.5 % (1.0-10.0) Eosinophils (%) (Auto) 2.9 % (0.0-3.0) Basophils (%) (Auto) 1.1 % (0.0-2.0) Sodium Level 141 mEQ/L (135-145) Potassium Level 3.4 mEQ/L (3.4-4.9) Chloride Level 103 mEQ/L (98-107) Carbon Dioxide Level 25 mEQ/L (20-30) Anion Gap 13 (5-15) Blood Urea Nitrogen 6 mg/dL (7-23) L Creatinine 0.5 mg/dL (0.5-0.9) Estimat Glomerular Filtration Rate > 60 mL/min (>60) Glucose Level 103 mg/dL (74-106) Calcium Level 8.5 mg/dL (8.6-10.2) L Total Bilirubin 0.6 mg/dL (0.0-1.2) Aspartate Amino Transf (AST/SGOT) 215 U/L (5-40) H Alanine Aminotransferase (ALT/SGPT) 582 U/L (3-33) H Alkaline Phosphatase 75 U/L (35-104) Total Protein 6.4 g/dL (6.6-8.7) L Albumin 3.6 g/dL (3.5-5.2) Globulin 2.8 g/dL Albumin/Globulin Ratio 1.2 (1.0-2.7) Plan Problems: (1) Cholecystitis Assessment & Plan: 66 F w/ acute cholecystitis, elevated amylase, gallstone pancreatitis which is resolving. Afebrile, HD stable, exam improved, LFT's trending down, elevated amylase, normal lipase. Ultrasound with cholelithiasis. MRCP with no biliary obstruction. Plan: NPO IV fluids IV Abx Will proceed with laparoscopic possible open cholecystectomy tomorrow. Consent in chart. Sudarshan Perez November 10, 2016 10:20
--- NOTE | 2016-11-10 10:25 | Pre-Procedure Note/Attestation ---
Pre-Procedure Note/Attestation Complete Prior to Procedure Planned Procedure: not applicable Procedure Narrative: laparoscopic cholecystectomy, possible open Indications for Procedure Pre-Operative Diagnosis: gallstone pancreatitis, cholecystitis Attestation I attest that I discussed the nature of the procedure; its benefits; risks and complications; and alternatives (and the risks and benefits of such alternatives ), prior to the procedure, with the patient (or the patient's legal personal service representative). I attest that, if there was a reasonable possibility of needing a blood transfusion, the patient (or the patient's legal personal service representative) was given the [facility] standardized written summary, pursuant to the Bradley Dennis Blood Safety Act ([place] Health and Safety Code # 1645, as amended). I attest that I re-evaluated the patient just prior to the surgery and that there has been no change in the patient's H&P, except as documented below: Sudarshan Perez November 10, 2016 10:25
--- NOTE | 2016-11-10 11:29 | GI Progress Note ---
Assessment/Plan Problems: (1) Elevated amylase ICD Codes: R74.8 - Abnormal levels of other serum enzymes SNOMED: 524571550 (2) Elevated LFTs ICD Codes: R94.5 - Abnormal results of liver function studies SNOMED: 224134109 (3) Cholecystitis ICD Codes: K81.9 - Cholecystitis, unspecified SNOMED: 44690075, 44526183 (4) Abdominal pain ICD Codes: R10.9 - Unspecified abdominal pain SNOMED: 38651989 Qualifiers: Qualified Codes: R10.13 - Epigastric pain (5) GERD (gastroesophageal reflux disease) ICD Codes: K21.9 - Gastro-esophageal reflux disease without esophagitis SNOMED: 367626178 (6) History of appendectomy ICD Codes: Z90.49 - Acquired absence of other specified parts of digestive tract SNOMED: 850278673 Status: stable, unchanged Status Narrative Discussed with Dr. Christensen. Assessment/Plan Abdominal U/S >> cholelithiasis exam with +Olmos's sign elevated LFT's elevated amylase/normal lipase MRCP reviewed >> negative for choledocholithiasis ERCP deferred, will follow surgical recs IV Abx ppi monitor LFTs pain mgmt fu hep panel fu labs Subjective Gastrointestinal/Abdominal: Reports: abdominal pain, constipated Objective Last 24 Hour Vital Signs Date Time Temp Pulse Resp B/P Pulse Ox O2 Delivery O2 Flow Rate FiO2 11/10/16 08:15 97.7 67 22 119/67 99 Room Air 11/10/16 04:00 97.4 69 18 119/69 96 Room Air 11/10/16 00:00 96.9 71 20 121/69 97 Room Air 11/09/16 21:00 98.4 68 18 127/74 Room Air 11/09/16 16:06 98.7 67 22 126/73 99 Room Air 11/09/16 12:15 97.7 71 22 120/56 98 Room Air Intake and Output 11/09/16 11/10/16 19:00 07:00 Intake Total 822.5 ml 1052.5 ml Balance 822.5 ml 1052.5 ml Intake Oral 480 ml 540 ml IV Total 342.5 ml 512.5 ml # Voids 2 5 Laboratory Tests Test 11/10/16 05:43 White Blood Count 5.0 K/UL (4.8-10.8) Red Blood Count 4.09 M/UL (4.20-5.40) L Hemoglobin 12.6 G/DL (12.0-16.0) Hematocrit 37.9 % (37.0-47.0) Mean Corpuscular Volume 93 FL (80-99) Mean Corpuscular Hemoglobin 30.9 PG (27.0-31.0) Mean Corpuscular Hemoglobin Concent 33.3 G/DL (32.0-36.0) Red Cell Distribution Width 12.5 % (11.6-14.8) Platelet Count 182 K/UL (150-450) Mean Platelet Volume 7.4 FL (6.5-10.1) Neutrophils (%) (Auto) 58.6 % (45.0-75.0) Lymphocytes (%) (Auto) 31.8 % (20.0-45.0) Monocytes (%) (Auto) 5.5 % (1.0-10.0) Eosinophils (%) (Auto) 2.9 % (0.0-3.0) Basophils (%) (Auto) 1.1 % (0.0-2.0) Sodium Level 141 mEQ/L (135-145) Potassium Level 3.4 mEQ/L (3.4-4.9) Chloride Level 103 mEQ/L (98-107) Carbon Dioxide Level 25 mEQ/L (20-30) Anion Gap 13 (5-15) Blood Urea Nitrogen 6 mg/dL (7-23) L Creatinine 0.5 mg/dL (0.5-0.9) Estimat Glomerular Filtration Rate > 60 mL/min (>60) Glucose Level 103 mg/dL (74-106) Calcium Level 8.5 mg/dL (8.6-10.2) L Total Bilirubin 0.6 mg/dL (0.0-1.2) Aspartate Amino Transf (AST/SGOT) 215 U/L (5-40) H Alanine Aminotransferase (ALT/SGPT) 582 U/L (3-33) H Alkaline Phosphatase 75 U/L (35-104) Total Protein 6.4 g/dL (6.6-8.7) L Albumin 3.6 g/dL (3.5-5.2) Globulin 2.8 g/dL Albumin/Globulin Ratio 1.2 (1.0-2.7) Height (Feet): 5 Weight (Pounds): 147 General Appearance: no apparent distress, alert Cardiovascular: normal rate Respiratory/Chest: normal breath sounds, no respiratory distress Abdominal Exam: normal bowel sounds, non tender, soft Qiana Obregon N.P. November 10, 2016 11:29
--- NOTE | 2016-11-10 13:55 | Anethesia Preoperative Eval ---
Anesthesia Pre-op PMH/ROS General Date of Evaluation: November 10, 2016 Anesthesiologist: Kev ASA Score: ASA 2 Mallampati Score Class I : Soft palate, uvula, fauces, pillars visible Class II: Soft palate, uvula, fauces visible Class III: Soft palate, base of uvula visible Class IV: Only hard plate visible Mallampati Classification: Class II Surgeon: Ana Diagnosis: acute cholecystitis Surgical Procedure: lap laura Anesthesia History: PONV, emergence delirium Family History: no anesthesia problems Allergies: Coded Allergies: No Known Allergies (Unverified , 11/08/16) Medications: see eMAR Past Medical History Cardiovascular: Denies: CAD, HTN, MS, arrhythmia, other, valve dz Pulmonary: Denies: COPD, CHICA, asthma, other Gastrointestinal/Genitourinary: Reports: GERD, Denies: CRI, ESRD, other 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: Denies: CVA, TIA, dementia, depression/anxiety, other Endocrine: Reports: hypothyroidism, Denies: DM, other, steroids HEENT: Denies: MILLE LACS (L), MILLE LACS (R), cataract (L), cataract (R), glaucoma, other Hematology/Immune: Denies: DVT, anemia, bleeding disorder, other Musculoskeletal/Integumentary: Denies: DDD, DJD, OA, RA, edema, other PSxH Narrative: lap appy, BSO, BTL Anesthesia Pre-op Phys. Exam Physician Exam Last Vital Signs Date Time Temp Pulse Resp B/P Pulse Ox O2 Delivery O2 Flow Rate FiO2 11/10/16 12:15 97.7 67 22 133/78 97 Room Air Constitutional: NAD Cardiovascular: RRR Respiratory: CTA Airway Exam Mallampati Score: Class II MO: full ROM: full Teeth: intact Anesthesia Pre-op A/P Labs Hematology Test 11/10/16 05:43 White Blood Count 5.0 K/UL (4.8-10.8) Red Blood Count 4.09 M/UL (4.20-5.40) L Hemoglobin 12.6 G/DL (12.0-16.0) Hematocrit 37.9 % (37.0-47.0) Mean Corpuscular Volume 93 FL (80-99) Mean Corpuscular Hemoglobin 30.9 PG (27.0-31.0) Mean Corpuscular Hemoglobin Concent 33.3 G/DL (32.0-36.0) Red Cell Distribution Width 12.5 % (11.6-14.8) Platelet Count 182 K/UL (150-450) Mean Platelet Volume 7.4 FL (6.5-10.1) Neutrophils (%) (Auto) 58.6 % (45.0-75.0) Lymphocytes (%) (Auto) 31.8 % (20.0-45.0) Monocytes (%) (Auto) 5.5 % (1.0-10.0) Eosinophils (%) (Auto) 2.9 % (0.0-3.0) Basophils (%) (Auto) 1.1 % (0.0-2.0) Chemistry Test 11/10/16 05:43 Sodium Level 141 mEQ/L (135-145) Potassium Level 3.4 mEQ/L (3.4-4.9) Chloride Level 103 mEQ/L (98-107) Carbon Dioxide Level 25 mEQ/L (20-30) Anion Gap 13 (5-15) Blood Urea Nitrogen 6 mg/dL (7-23) L Creatinine 0.5 mg/dL (0.5-0.9) Estimat Glomerular Filtration Rate > 60 mL/min (>60) Glucose Level 103 mg/dL (74-106) Calcium Level 8.5 mg/dL (8.6-10.2) L Total Bilirubin 0.6 mg/dL (0.0-1.2) Aspartate Amino Transf (AST/SGOT) 215 U/L (5-40) H Alanine Aminotransferase (ALT/SGPT) 582 U/L (3-33) H Alkaline Phosphatase 75 U/L (35-104) Total Protein 6.4 g/dL (6.6-8.7) L Albumin 3.6 g/dL (3.5-5.2) Globulin 2.8 g/dL Albumin/Globulin Ratio 1.2 (1.0-2.7) Studies Pre-op Studies: EKG - sr Risk Assessment & Plan Assessment: ASA II Plan: GA Status Change Before Surgery: No Pre-Antibiotics Drug: ALEXD JOSE SWIFT M.D. November 10, 2016 13:55
--- NOTE | 2016-11-10 18:36 | Pulmonology Progress Note ---
Assessment/Plan Problems: (1) Cholecystitis (2) Elevated LFTs (3) History of appendectomy Assessment/Plan NPO Iv fluids continue antibiotics Negative ERCP fo rCBD stone surgical f/u for cholecystectomy in am Subjective ROS Limited/Unobtainable: No Allergies: Coded Allergies: No Known Allergies (Unverified , 11/08/16) Objective Last 24 Hour Vital Signs Date Time Temp Pulse Resp B/P Pulse Ox O2 Delivery O2 Flow Rate FiO2 11/10/16 16:13 98.1 71 23 125/73 99 Room Air 11/10/16 12:15 97.7 67 22 133/78 97 Room Air 11/10/16 08:15 97.7 67 22 119/67 99 Room Air 11/10/16 04:00 97.4 69 18 119/69 96 Room Air 11/10/16 00:00 96.9 71 20 121/69 97 Room Air 11/09/16 21:00 98.4 68 18 127/74 Room Air Intake and Output 11/09/16 11/10/16 19:00 07:00 Intake Total 822.5 ml 1052.5 ml Balance 822.5 ml 1052.5 ml Intake Oral 480 ml 540 ml IV Total 342.5 ml 512.5 ml # Voids 2 5 Objective General Appearance: WD/WN HEENT: normocephalic, atraumatic Respiratory/Chest: chest wall non-tender, Cardiovascular: normal peripheral pulses, normal rate Abdomen: normal bowel sounds, no organomegaly Genitourinary: normal external genitalia 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: histology specialist II-XII grossly normal Microbiology Date/Time Source Procedure Growth Status 11/08/16 14:55 Blood Blood Culture - Preliminary NO GROWTH AFTER 24 HOURS Resulted 11/08/16 14:40 Blood Blood Culture - Preliminary NO GROWTH AFTER 24 HOURS Resulted Laboratory Tests 11/10/16 05:43: White Blood Count 5.0, Red Blood Count 4.09L, Hemoglobin 12.6, Hematocrit 37.9, Mean Corpuscular Volume 93, Mean Corpuscular Hemoglobin 30.9, Mean Corpuscular Hemoglobin Concent 33.3, Red Cell Distribution Width 12.5, Platelet Count 182, Mean Platelet Volume 7.4, Neutrophils (%) (Auto) 58.6, Lymphocytes (%) (Auto) 31.8, Monocytes (%) (Auto) 5.5, Eosinophils (%) (Auto) 2.9, Basophils (%) (Auto ) 1.1, Sodium Level 141, Potassium Level 3.4, Chloride Level 103, Carbon Dioxide Level 25, Anion Gap 13, Blood Urea Nitrogen 6L, Creatinine 0.5, Estimat Glomerular Filtration Rate > 60, Glucose Level 103, Calcium Level 8.5L, Total Bilirubin 0.6, Aspartate Amino Transf (AST/SGOT) 215H, Alanine Aminotransferase (ALT/SGPT) 582H, Alkaline Phosphatase 75, Total Protein 6.4L, Albumin 3.6, Globulin 2.8, Albumin/Globulin Ratio 1.2 Current Medications Medications (Trade) Dose Ordered Sig/Kyle Route PRN Reason Start Time Stop Time Status Last Admin Dose Admin Acetaminophen (Tylenol) 650 mg Q4H PRN ORAL T>100.5 11/08/16 12:15 12/08/16 12:14 Al Hydroxide/Mg Hydroxide (Mylanta II) 30 ml Q6H PRN ORAL dyspepsia 11/08/16 12:15 12/08/16 12:14 Dextrose STAT PRN IV Hypoglycemia 11/08/16 12:15 12/08/16 12:14 Dextrose/Sodium Chloride (D5 0.45% NS) 1,000 ml @ 100 mls/hr Q10H IV 11/10/16 12:00 12/10/16 11:59 11/10/16 18:10 Diphenhydramine HCl (Benadryl) 25 mg Q6H PRN ORAL Itching/Pruritis 11/08/16 12:15 12/08/16 12:14 Morphine Sulfate (Morphine Sulfate) 2 mg Q4H PRN IVP severe Pain (Pain Scale 7-10) 11/08/16 12:15 11/15/16 12:14 Nitroglycerin (Ntg) 0.4 mg Q5M X 3 DOSES PRN SL Prn Chest Pain 11/08/16 12:15 12/08/16 12:14 Ondansetron HCl (Zofran) 4 mg Q6H PRN IVP Nausea & Vomiting 11/08/16 12:15 12/08/16 12:14 Pantoprazole 40 mg 40 mg DAILY IVP 11/09/16 09:00 12/09/16 08:59 11/10/16 08:08 Piperacillin Sod/ Tazobactam Sod/ Sodium Chloride (Zosyn/Sodium Chloride) 110 ml @ 27.5 mls/hr EVERY 8 HOURS IVPB 11/08/16 14:00 11/15/16 13:59 11/10/16 13:28 Polyethylene Glycol (Miralax) 17 gm HSPRN PRN ORAL Constipation 11/08/16 21:00 12/08/16 20:59 Temazepam (Restoril) 15 mg HSPRN PRN ORAL Insomnia 11/08/16 21:00 11/15/16 20:59 SAFIA LORA November 10, 2016 18:36
[2016-11-11] VITALS (14 sets, daily range): BP systolic 116–141; BP diastolic 51–76
[2016-11-11] MEDS: Piperacillin/Tazobactam 3.375 GM in NS 110 ML IVPB SCH (05:21)
[2016-11-11] MEDS: D5 1/2NS 1,000 ML IV SCH ×3 (05:21→20:25)
[2016-11-11 07:42] LABS: BASOPHILS % (AUTO) 1.4 % (0.0-2.0); EOSINOPHILS % (AUTO) 2.9 % (0.0-3.0); LYMPHOCYTES % (AUTO) 36.4 % (20.0-45.0); MEAN CORPUSCULAR HEMOGLOBIN 30.8 PG (27.0-31.0); MEAN CORPUSCULAR HGB CONC 33.2 G/DL (32.0-36.0); MEAN CORPUSCULAR VOLUME 93 FL (80-99); MEAN PLATELET VOLUME 7.6 FL (6.5-10.1); NEUTROPHILS % (AUTO) 51.4 % (45.0-75.0); PLATELET COUNT 191 K/UL (150-450); RED BLOOD COUNT 4.17 M/UL (4.20-5.40); RED CELL DISTRIBUTION WIDTH 12.2 % (11.6-14.8); WHITE BLOOD COUNT 4.4 K/UL (4.8-10.8)
[2016-11-11 07:49] LABS: INR 1.1 (0.9-1.1)
[2016-11-11 08:01] LABS: ALANINE AMINOTRANSFERASE 394 U/L (3-33); AMYLASE 82 U/L (10-110); ANION GAP 14 (5-15); ASPARTATE AMINO TRANSFERASE 94 U/L (5-40); CALCIUM 8.7 mg/dL (8.6-10.2); CARBON DIOXIDE 25 mEQ/L (20-30); CHLORIDE 102 mEQ/L (98-107); CREATININE 0.5 mg/dL (0.5-0.9); GLOMERULAR FILTRATION RATE > 60 mL/min (>60); HEMOLYSIS 3; LIPASE 37 U/L (< 60); POTASSIUM 3.4 mEQ/L (3.4-4.9); SODIUM 141 mEQ/L (135-145); TOTAL PROTEIN 6.5 g/dL (6.6-8.7)
[2016-11-11] MEDS: Pantoprazole Inj IVP SCH (08:12)
[2016-11-11] MEDS ORDERED: Sterile Water Irrig 1000ml IRRIG ONE (09:00)
[2016-11-11] MEDS ORDERED: Nimbex 2mg/ml Inj 10ML IVP ONE (09:00)
[2016-11-11] MEDS ORDERED: Ketorolac 30mg Inj ONE (09:00)
[2016-11-11] MEDS ORDERED: Dexamethasone 4mg/ml vial ONE (09:00)
[2016-11-11] MEDS ORDERED: LR 1000ml ONE (09:00)
[2016-11-11] MEDS ORDERED: fentaNYL 250mcg/5ml ONE (09:00)
[2016-11-11] MEDS ORDERED: Lidocaine 1% MPF 10mg/ml 5ml ONE (09:00)
[2016-11-11] MEDS ORDERED: Metoclopramide 10mg/2ml Inj ONE (09:00)
[2016-11-11] MEDS ORDERED: NS Irrig 1000ml ONE (09:00)
[2016-11-11] MEDS ORDERED: Propofol 10mg/ml 20ml IV ONE (09:00)
[2016-11-11] MEDS ORDERED: Bupivacaine w/Epi 0.25% 30ml Vial INJ ONE (09:03)
[2016-11-11] MEDS ORDERED: Iothalamate Meglumine 60% 30ML INJ ONE (09:03)
[2016-11-11] MEDS ORDERED: LR 1000ml 1,000 ML IVLG SCH (09:06)
[2016-11-11] MEDS ORDERED: DiphenhydrAMINE 50mg/ml Inj IVP PRN (09:15)
[2016-11-11] MEDS ORDERED: Metoclopramide 10mg/2ml Inj IVP PRN (09:15)
[2016-11-11] MEDS ORDERED: Ketorolac 30mg Inj IV PRN (09:15)
[2016-11-11] MEDS ORDERED: fentaNYL 100 mcg/2 mL IV PRN (09:15)
[2016-11-11] MEDS ORDERED: Hydromorphone 0.5mg/0.5ml inj IVP PRN (09:15)
[2016-11-11] MEDS ORDERED: Surgicel 4in x 8in TOPIC ONE (10:06)
--- NOTE | 2016-11-11 10:34 | Brief Operative Note ---
Immediate Post Operative Note Operative Note Pre-op Diagnosis: gallstone pancreatitis, cholecystitis Post-op Diagnosis: same as pre-op Findings: consistent w/pre-op dx studies Surgeon: Ana Dough Brake Machine Operator: Curt Anesthesiologist: Kev Anesthesia: general Specimen: yes - gallbladder Complications: none Condition: stable Fluids: see anesthesia records Estimated Blood Loss: minimal Drains: none Implant(s) used?: No Sudarshan Perez November 11, 2016 10:34
--- NOTE | 2016-11-11 10:34 | Immediate Post-Op Evaluation ---
Immediate Post-Op Evalulation Immediate Post-Op Evalulation Procedure: Laparoscopic cholecystectomy Date of Evaluation: November 11, 2016 Time of Evaluation: 10:34 IV Fluids: 700 Blood Products: 0 Estimated Blood Loss: min Urinary Output: 0 Blood Pressure Systolic: 141 Blood Pressure Diastolic: 76 Pulse Rate: 106 Respiratory Rate: 17 O2 Sat by Pulse Oximetry: 100 Temperature (Fahrenheit): 97.4 Pain Score (1-10): 0 Nausea: No Vomiting: No Complications 0 Patient Status: awake, reacts, patent, none Hydration Status: adequate Drug: Ancef 1g Given Within 1 Hr of Incision: Yes Time Given: 09:15 JOSE SWIFT M.D. November 11, 2016 10:34
[2016-11-11] MEDS ORDERED: NS 275ml ONE (11:20)
[2016-11-11] MEDS ORDERED: D5 1/2NS 1000ml IV ONE (11:20)
--- NOTE | 2016-11-11 11:21 | GI Progress Note ---
Assessment/Plan Problems: (1) Elevated amylase ICD Codes: R74.8 - Abnormal levels of other serum enzymes SNOMED: 822847529 (2) Elevated LFTs ICD Codes: R94.5 - Abnormal results of liver function studies SNOMED: 097471744 (3) Cholecystitis ICD Codes: K81.9 - Cholecystitis, unspecified SNOMED: 27338940, 10147894 (4) Abdominal pain ICD Codes: R10.9 - Unspecified abdominal pain SNOMED: 94903873 Qualifiers: Qualified Codes: R10.13 - Epigastric pain (5) GERD (gastroesophageal reflux disease) ICD Codes: K21.9 - Gastro-esophageal reflux disease without esophagitis SNOMED: 151967211 (6) History of appendectomy ICD Codes: Z90.49 - Acquired absence of other specified parts of digestive tract SNOMED: 163261216 Status: unchanged Status Narrative Discussed with Dr. Christensen. Assessment/Plan Abdominal U/S >> cholelithiasis exam with +Olmos's sign elevated LFT's elevated amylase/normal lipase MRCP reviewed >> negative for choledocholithiasis hep panel negative pt scheduled for cholecystectomy today ERCP deferred, will follow surgical recs IV Abx ppi monitor LFTs pain mgmt fu labs Subjective Gastrointestinal/Abdominal: Reports: abdominal pain Objective Last 24 Hour Vital Signs Date Time Temp Pulse Resp B/P Pulse Ox O2 Delivery O2 Flow Rate FiO2 11/11/16 11:10 83 12 124/65 100 Nasal Cannula 3.0 11/11/16 11:00 86 14 132/67 100 Nasal Cannula 3.0 11/11/16 10:50 88 13 129/67 100 Nasal Cannula 3.0 11/11/16 10:40 89 20 129/66 100 Simple Mask 6.0 11/11/16 10:35 100 15 134/69 100 Simple Mask 6.0 11/11/16 10:34 106 17 100 11/11/16 10:30 97.4 105 14 141/76 100 Simple Mask 6.0 11/11/16 08:12 97.0 67 18 116/69 98 Room Air 11/11/16 04:00 97.5 63 18 120/66 96 11/10/16 23:48 97.5 66 18 119/65 97 Room Air 11/10/16 21:00 97.7 67 18 120/67 98 Room Air 11/10/16 16:13 98.1 71 23 125/73 99 Room Air 11/10/16 12:15 97.7 67 22 133/78 97 Room Air Intake and Output 11/10/16 11/11/16 19:00 07:00 Intake Total 282.5 ml 1237.5 ml Balance 282.5 ml 1237.5 ml IV Total 282.5 ml 1237.5 ml # Voids 3 2 # Bowel Movements 2 Laboratory Tests Test 11/11/16 06:00 White Blood Count 4.4 K/UL (4.8-10.8) L Red Blood Count 4.17 M/UL (4.20-5.40) L Hemoglobin 12.8 G/DL (12.0-16.0) Hematocrit 38.6 % (37.0-47.0) Mean Corpuscular Volume 93 FL (80-99) Mean Corpuscular Hemoglobin 30.8 PG (27.0-31.0) Mean Corpuscular Hemoglobin Concent 33.2 G/DL (32.0-36.0) Red Cell Distribution Width 12.2 % (11.6-14.8) Platelet Count 191 K/UL (150-450) Mean Platelet Volume 7.6 FL (6.5-10.1) Neutrophils (%) (Auto) 51.4 % (45.0-75.0) Lymphocytes (%) (Auto) 36.4 % (20.0-45.0) Monocytes (%) (Auto) 8.0 % (1.0-10.0) Eosinophils (%) (Auto) 2.9 % (0.0-3.0) Basophils (%) (Auto) 1.4 % (0.0-2.0) Prothrombin Time 11.0 SEC (9.30-11.50) Prothromb Time International Ratio 1.1 (0.9-1.1) Activated Partial Thromboplast Time 29 SEC (23-33) Sodium Level 141 mEQ/L (135-145) Potassium Level 3.4 mEQ/L (3.4-4.9) Chloride Level 102 mEQ/L (98-107) Carbon Dioxide Level 25 mEQ/L (20-30) Anion Gap 14 (5-15) Blood Urea Nitrogen 3 mg/dL (7-23) L Creatinine 0.5 mg/dL (0.5-0.9) Estimat Glomerular Filtration Rate > 60 mL/min (>60) Glucose Level 115 mg/dL (74-106) H Calcium Level 8.7 mg/dL (8.6-10.2) Total Bilirubin 0.5 mg/dL (0.0-1.2) Aspartate Amino Transf (AST/SGOT) 94 U/L (5-40) H Alanine Aminotransferase (ALT/SGPT) 394 U/L (3-33) H Alkaline Phosphatase 70 U/L (35-104) Total Protein 6.5 g/dL (6.6-8.7) L Albumin 3.4 g/dL (3.5-5.2) L Globulin 3.1 g/dL Albumin/Globulin Ratio 1.0 (1.0-2.7) Amylase Level 82 U/L (10-110) Lipase 37 U/L (< 60) Height (Feet): 5 Height (Inches): 0.00 Weight (Pounds): 147 General Appearance: no apparent distress, alert Cardiovascular: normal rate Respiratory/Chest: lungs clear Abdominal Exam: normal bowel sounds, non tender, soft Extremities: normal range of motion Qiana Obregon N.P. November 11, 2016 11:21
--- NOTE | 2016-11-11 11:56 | Infectious Diseases Prog Note ---
Assessment/Plan Assessment/Plan A: The patient is a 66-year-old female, Cholecystitis Abnormal liver functions improving Ultrasound of the abdomen : cholelithiasis and Olmos's sign Hep panel: neg MRCP : gallbladder wall thickening although no definite pericholecystic inflammation GERD PLAN:\ cont pt on IV Zosyn d# 3 Monitor CBC Monitor BMP. Monitor cultures (blood). Monitor liver function tests GI and surg. is following lap laura today Subjective Allergies: Coded Allergies: No Known Allergies (Unverified , 11/08/16) Subjective going for Sx Objective Vital Signs Last 24 Hour Vital Signs Date Time Temp Pulse Resp B/P Pulse Ox O2 Delivery O2 Flow Rate FiO2 11/11/16 11:30 82 12 130/67 100 Nasal Cannula 3.0 11/11/16 11:15 82 12 126/68 100 Nasal Cannula 3.0 11/11/16 11:10 83 12 124/65 100 Nasal Cannula 3.0 11/11/16 11:00 86 14 132/67 100 Nasal Cannula 3.0 11/11/16 10:50 88 13 129/67 100 Nasal Cannula 3.0 11/11/16 10:40 89 20 129/66 100 Simple Mask 6.0 11/11/16 10:35 100 15 134/69 100 Simple Mask 6.0 11/11/16 10:34 106 17 100 11/11/16 10:30 97.4 105 14 141/76 100 Simple Mask 6.0 11/11/16 08:12 97.0 67 18 116/69 98 Room Air 11/11/16 04:00 97.5 63 18 120/66 96 11/10/16 23:48 97.5 66 18 119/65 97 Room Air 11/10/16 21:00 97.7 67 18 120/67 98 Room Air 11/10/16 16:13 98.1 71 23 125/73 99 Room Air 11/10/16 12:15 97.7 67 22 133/78 97 Room Air Height (Feet): 5 Height (Inches): 0.00 Weight (Pounds): 147 HEENT: mucous membranes moist Respiratory/Chest: normal breath sounds Cardiovascular: normal rate Abdomen: soft, non tender Extremities: no clubbing Microbiology Date/Time Source Procedure Growth Status 11/08/16 14:55 Blood Blood Culture - Preliminary NO GROWTH AFTER 48 HOURS Resulted 11/08/16 14:40 Blood Blood Culture - Preliminary NO GROWTH AFTER 48 HOURS Resulted Laboratory Tests Test 11/11/16 06:00 White Blood Count 4.4 K/UL (4.8-10.8) L Red Blood Count 4.17 M/UL (4.20-5.40) L Hemoglobin 12.8 G/DL (12.0-16.0) Hematocrit 38.6 % (37.0-47.0) Mean Corpuscular Volume 93 FL (80-99) Mean Corpuscular Hemoglobin 30.8 PG (27.0-31.0) Mean Corpuscular Hemoglobin Concent 33.2 G/DL (32.0-36.0) Red Cell Distribution Width 12.2 % (11.6-14.8) Platelet Count 191 K/UL (150-450) Mean Platelet Volume 7.6 FL (6.5-10.1) Neutrophils (%) (Auto) 51.4 % (45.0-75.0) Lymphocytes (%) (Auto) 36.4 % (20.0-45.0) Monocytes (%) (Auto) 8.0 % (1.0-10.0) Eosinophils (%) (Auto) 2.9 % (0.0-3.0) Basophils (%) (Auto) 1.4 % (0.0-2.0) Prothrombin Time 11.0 SEC (9.30-11.50) Prothromb Time International Ratio 1.1 (0.9-1.1) Activated Partial Thromboplast Time 29 SEC (23-33) Sodium Level 141 mEQ/L (135-145) Potassium Level 3.4 mEQ/L (3.4-4.9) Chloride Level 102 mEQ/L (98-107) Carbon Dioxide Level 25 mEQ/L (20-30) Anion Gap 14 (5-15) Blood Urea Nitrogen 3 mg/dL (7-23) L Creatinine 0.5 mg/dL (0.5-0.9) Estimat Glomerular Filtration Rate > 60 mL/min (>60) Glucose Level 115 mg/dL (74-106) H Calcium Level 8.7 mg/dL (8.6-10.2) Total Bilirubin 0.5 mg/dL (0.0-1.2) Aspartate Amino Transf (AST/SGOT) 94 U/L (5-40) H Alanine Aminotransferase (ALT/SGPT) 394 U/L (3-33) H Alkaline Phosphatase 70 U/L (35-104) Total Protein 6.5 g/dL (6.6-8.7) L Albumin 3.4 g/dL (3.5-5.2) L Globulin 3.1 g/dL Albumin/Globulin Ratio 1.0 (1.0-2.7) Amylase Level 82 U/L (10-110) Lipase 37 U/L (< 60) Current Medications Medications (Trade) Dose Ordered Sig/Kyle Route PRN Reason Start Time Stop Time Status Last Admin Dose Admin Acetaminophen (Tylenol) 650 mg Q4H PRN ORAL T>100.5 11/08/16 12:15 12/08/16 12:14 Acetaminophen (Tylenol) 650 mg Q4H PRN ORAL Mild Pain (Pain Scale 1-3) 11/11/16 09:15 11/11/16 15:00 Acetaminophen/ Hydrocodone Bitart (Nichols 5/325) 1 tab Q4H PRN ORAL Moderate Pain (Pain Scale 4-6) 11/11/16 10:45 11/18/16 10:44 Al Hydroxide/Mg Hydroxide (Mylanta II) 30 ml Q6H PRN ORAL dyspepsia 11/08/16 12:15 12/08/16 12:14 Dextrose (Dextrose 50%) STAT PRN IV Hypoglycemia 11/08/16 12:15 12/08/16 12:14 Dextrose/Sodium Chloride (D5 0.45% NS) 1,000 ml @ 100 mls/hr Q10H IV 11/10/16 12:00 12/10/16 11:59 11/11/16 05:21 Diphenhydramine HCl (Benadryl) 25 mg Q6H PRN ORAL Itching/Pruritis 11/08/16 12:15 12/08/16 12:14 Diphenhydramine HCl 25 mg 25 mg Q15M PRN IVP Itching 11/11/16 09:15 11/11/16 15:00 Docusate Sodium (Colace) 100 mg TWICE A DAY ORAL 11/11/16 18:00 12/11/16 17:59 Fentanyl Citrate (Sublimaze 100 mcg/2 mL) 25 mcg Q10M PRN IV Moderate Pain (Pain Scale 4-6) 11/11/16 09:15 11/11/16 15:00 Hydralazine HCl (Apresoline) 5 mg Q30M PRN IV SBP>160 OR___/DBP>90 OR___ 11/11/16 09:15 11/11/16 15:00 Hydromorphone HCl (Dilaudid) 0.5 mg Q15M PRN IVP Severe Pain (Pain Scale 7-10) 11/11/16 09:15 11/11/16 15:00 Ibuprofen (Advil) 400 mg EVERY 4 HOURS PRN ORAL pain 11/11/16 10:45 12/11/16 10:44 Lactated Ringer's (Lactated Ringer's 1000ml) 1,000 ml @ 10 mls/hr Q24H IVLG 11/11/16 09:06 11/11/16 15:00 Metoclopramide HCl (Reglan) 10 mg Q1H PRN IVP Nausea & Vomiting 11/11/16 09:15 11/11/16 15:00 Morphine Sulfate (Morphine Sulfate) 2 mg Q4H PRN IVP severe Pain (Pain Scale 7-10) 11/08/16 12:15 11/15/16 12:14 Nitroglycerin (Ntg) 0.4 mg Q5M X 3 DOSES PRN SL Prn Chest Pain 11/08/16 12:15 12/08/16 12:14 Ondansetron HCl (Zofran) 4 mg Q1H PRN IVP Nausea & Vomiting 11/11/16 09:15 11/11/16 15:00 Ondansetron HCl (Zofran) 4 mg Q6H PRN IVP Nausea & Vomiting 11/08/16 12:15 12/08/16 12:14 Pantoprazole 40 mg 40 mg DAILY IVP 11/09/16 09:00 12/09/16 08:59 11/11/16 08:12 Polyethylene Glycol (Miralax) 17 gm HSPRN PRN ORAL Constipation 11/08/16 21:00 12/08/16 20:59 Temazepam (Restoril) 15 mg HSPRN PRN ORAL Insomnia 11/08/16 21:00 11/15/16 20:59 EMA HILLMAN M.D. November 11, 2016 11:56
--- NOTE | 2016-11-11 14:49 | Pulmonology Progress Note ---
Assessment/Plan Problems: (1) Cholecystitis (2) Elevated LFTs (3) History of appendectomy Assessment/Plan advance diet when ok with surgeon Iv fluids continue antibiotics surgical f/u tolerated cholecystectomy amylase decreasing Subjective ROS Limited/Unobtainable: No Interval Events: had cholecystectomy Allergies: Coded Allergies: No Known Allergies (Unverified , 11/08/16) Objective Last 24 Hour Vital Signs Date Time Temp Pulse Resp B/P Pulse Ox O2 Delivery O2 Flow Rate FiO2 11/11/16 13:06 97.6 11/11/16 11:58 97.6 85 14 125/73 100 Nasal Cannula 3.0 11/11/16 11:45 83 15 127/66 100 Nasal Cannula 3.0 11/11/16 11:30 82 12 130/67 100 Nasal Cannula 3.0 11/11/16 11:15 82 12 126/68 100 Nasal Cannula 3.0 11/11/16 11:10 83 12 124/65 100 Nasal Cannula 3.0 11/11/16 11:00 86 14 132/67 100 Nasal Cannula 3.0 11/11/16 10:50 88 13 129/67 100 Nasal Cannula 3.0 11/11/16 10:40 89 20 129/66 100 Simple Mask 6.0 11/11/16 10:35 100 15 134/69 100 Simple Mask 6.0 11/11/16 10:34 106 17 100 11/11/16 10:30 97.4 105 14 141/76 100 Simple Mask 6.0 11/11/16 08:12 97.0 67 18 116/69 98 Room Air 11/11/16 04:00 97.5 63 18 120/66 96 11/10/16 23:48 97.5 66 18 119/65 97 Room Air 11/10/16 21:00 97.7 67 18 120/67 98 Room Air 11/10/16 16:13 98.1 71 23 125/73 99 Room Air Intake and Output 11/10/16 11/11/16 19:00 07:00 Intake Total 282.5 ml 1237.5 ml Balance 282.5 ml 1237.5 ml IV Total 282.5 ml 1237.5 ml # Voids 3 2 # Bowel Movements 2 Objective General Appearance: WD/WN HEENT: normocephalic, atraumatic Respiratory/Chest: chest wall non-tender, Cardiovascular: normal peripheral pulses, normal rate Abdomen: normal bowel sounds, no organomegaly Genitourinary: normal external genitalia 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: 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 grossly normal Microbiology Date/Time Source Procedure Growth Status 11/08/16 14:55 Blood Blood Culture - Preliminary NO GROWTH AFTER 48 HOURS Resulted Laboratory Tests 11/11/16 06:00: White Blood Count 4.4L, Red Blood Count 4.17L, Hemoglobin 12.8, Hematocrit 38.6 , Mean Corpuscular Volume 93, Mean Corpuscular Hemoglobin 30.8, Mean Corpuscular Hemoglobin Concent 33.2, Red Cell Distribution Width 12.2, Platelet Count 191, Mean Platelet Volume 7.6, Neutrophils (%) (Auto) 51.4, Lymphocytes (% ) (Auto) 36.4, Monocytes (%) (Auto) 8.0, Eosinophils (%) (Auto) 2.9, Basophils ( %) (Auto) 1.4, Prothrombin Time 11.0, Prothromb Time International Ratio 1.1, Activated Partial Thromboplast Time 29, Sodium Level 141, Potassium Level 3.4, Chloride Level 102, Carbon Dioxide Level 25, Anion Gap 14, Blood Urea Nitrogen 3L, Creatinine 0.5, Estimat Glomerular Filtration Rate > 60, Glucose Level 115H , Calcium Level 8.7, Total Bilirubin 0.5, Aspartate Amino Transf (AST/SGOT) 94H , Alanine Aminotransferase (ALT/SGPT) 394H, Alkaline Phosphatase 70, Total Protein 6.5L, Albumin 3.4L, Globulin 3.1, Albumin/Globulin Ratio 1.0, Amylase Level 82, Lipase 37 Current Medications Medications (Trade) Dose Ordered Sig/Kyle Route PRN Reason Start Time Stop Time Status Last Admin Dose Admin Acetaminophen (Tylenol) 650 mg Q4H PRN ORAL T>100.5 11/08/16 12:15 12/08/16 12:14 Acetaminophen (Tylenol) 650 mg Q4H PRN ORAL Mild Pain (Pain Scale 1-3) 11/11/16 09:15 11/11/16 15:00 Acetaminophen/ Hydrocodone Bitart ([place] 5/325) 1 tab Q4H PRN ORAL Moderate Pain (Pain Scale 4-6) 11/11/16 10:45 11/18/16 10:44 Al Hydroxide/Mg Hydroxide (Mylanta II) 30 ml Q6H PRN ORAL dyspepsia 11/08/16 12:15 12/08/16 12:14 Dextrose (Dextrose 50%) STAT PRN IV Hypoglycemia 11/08/16 12:15 12/08/16 12:14 Dextrose/Sodium Chloride (D5 0.45% NS) 1,000 ml @ 100 mls/hr Q10H IV 11/10/16 12:00 12/10/16 11:59 11/11/16 05:21 Diphenhydramine HCl (Benadryl) 25 mg Q6H PRN ORAL Itching/Pruritis 11/08/16 12:15 12/08/16 12:14 Diphenhydramine HCl 25 mg 25 mg Q15M PRN IVP Itching 11/11/16 09:15 11/11/16 15:00 Docusate Sodium (Colace) 100 mg TWICE A DAY ORAL 11/11/16 18:00 12/11/16 17:59 Fentanyl Citrate (Sublimaze 100 mcg/2 mL) 25 mcg Q10M PRN IV Moderate Pain (Pain Scale 4-6) 11/11/16 09:15 11/11/16 15:00 Hydralazine HCl (Apresoline) 5 mg Q30M PRN IV SBP>160 OR___/DBP>90 OR___ 11/11/16 09:15 11/11/16 15:00 Hydromorphone HCl (Dilaudid) 0.5 mg Q15M PRN IVP Severe Pain (Pain Scale 7-10) 11/11/16 09:15 11/11/16 15:00 Ibuprofen (Advil) 400 mg EVERY 4 HOURS PRN ORAL pain 11/11/16 10:45 12/11/16 10:44 Lactated Ringer's (Lactated Ringer's 1000ml) 1,000 ml @ 10 mls/hr Q24H IVLG 11/11/16 09:06 11/11/16 15:00 Metoclopramide HCl (Reglan) 10 mg Q1H PRN IVP Nausea & Vomiting 11/11/16 09:15 11/11/16 15:00 Morphine Sulfate (Morphine Sulfate) 2 mg Q4H PRN IVP severe Pain (Pain Scale 7-10) 11/08/16 12:15 11/15/16 12:14 11/11/16 12:36 Nitroglycerin (Ntg) 0.4 mg Q5M X 3 DOSES PRN SL Prn Chest Pain 11/08/16 12:15 12/08/16 12:14 Ondansetron HCl (Zofran) 4 mg Q1H PRN IVP Nausea & Vomiting 11/11/16 09:15 11/11/16 15:00 Ondansetron HCl (Zofran) 4 mg Q6H PRN IVP Nausea & Vomiting 11/08/16 12:15 12/08/16 12:14 Pantoprazole 40 mg 40 mg DAILY IVP 11/09/16 09:00 12/09/16 08:59 11/11/16 08:12 Polyethylene Glycol (Miralax) 17 gm HSPRN PRN ORAL Constipation 11/08/16 21:00 12/08/16 20:59 Temazepam (Restoril) 15 mg HSPRN PRN ORAL Insomnia 11/08/16 21:00 11/15/16 20:59 SAFIA LORA November 11, 2016 14:49
[2016-11-11] MEDS: Docusate 100mg cap ORAL SCH (18:00)
[2016-11-11] MEDS: Norco 5mg/325mg tab ORAL PRN (23:33)
--- NOTE | 2016-11-11 23:48 | Operative Note - Dictated ---
DATE OF OPERATION: 11/11/2016 PREOPERATIVE DIAGNOSES: 1. Acute cholecystitis. 2. Gallstone pancreatitis. POSTOPERATIVE DIAGNOSES: 1. Acute cholecystitis. 2. Gallstone pancreatitis. OPERATION PERFORMED: Laparoscopic cholecystectomy. ATTENDING SURGEON: Sudarshan Perez M.D. ASSISTING SURGEON: Murali Elias M.D. ANESTHESIOLOGIST: Dr. Valencia. ANESTHESIA: General RECYCLING COORDINATOR, ESTIMATED BLOOD LOSS: Minimal. IV FLUIDS: Please see anesthesia records. SPECIMENS: Gallbladder sent to pathology for review. COMPLICATIONS: None. WOUND CLASSIFICATION: Class III. ANTIBIOTICS: A 2 g Ancef IV given one hour prior to cut time. COUNTS: Sponge and needle count correct x2. SUMMARY OF FINDINGS: 1. No intraoperative complications. 2. Specimen sent to pathology gallbladder with contained stones. 3. No drains. 4. Moderately inflamed gallbladder. 5. Cystic duct and artery clearly identified, circumferentially dissected, and divided. 6. Critical view obtained. INDICATIONS FOR PROCEDURE: This is a 66-year-old female, who was admitted to the hospital for abdominal pain, nausea, and emesis. The patient was found to have elevated liver enzymes and ultrasound confirming cholelithiasis and concerns for a possible choledocholithiasis. The patient had MRCP, which identified a clear and patent biliary tract gallstones and mild thickening of the gallbladder wall. Upon admission, the patient had elevated amylase and complained of epigastric abdominal pain as well as a positive Olmos sign. This is indicative of likely gallstone pancreatitis. Surgery was indicated and recommended. The risks, benefits, alternatives, and the rationale to surgery were explained in detail to the patient, the patient's , and the patient's sons. After doing so, informed consent was obtained for laparoscopic possible open cholecystectomy, which is performed today. OPERATIVE NOTE: The patient was taken to the operating room and placed on the operating table in supine position with bilateral arms out. All bony prominences were well padded with gel pads. No Bruno catheter was placed given the patient had voided just prior to entering the operating room. Preoperatively, 2 g of intravenous Ancef were administered. Appropriate time-out was taken in identifying the patient, procedure, operative staff, and surgical staff. General SCDs were placed. General anesthesia was induced and the patient was intubated. In the supine position, the abdomen was prepped and draped in a standard surgical fashion. A supraumbilical midline incision was made and carried down to the fascia, which was then elevated and divided exposing the peritoneal cavity. A #0 Vicryl sutures was used to place two-stay sutures in the midline fascia. An open Zach technique was then used to enter the peritoneal cavity and a Zach balloon tip catheter was placed. Pneumoperitoneum was achieved with a total of 50 mmHg. The patient tolerated the pneumoperitoneum without complication. Laparoscope was then inserted into the abdomen under direct visualization. The abdomen was inspected. No adhesions or other pathology was identified. Subsequently, the following ports were inserted under direct visualization along with local anesthetic in the typical fashion, a 11 mm epigastric port and two 5 mm right subcostal ports. Peritoneal cavity was inspected and no abnormalities were identified. The patient was placed in reverse Trendelenburg position with the right side up. Omental attachments to the gallbladder were gently swept until an atraumatic grasper was used to retract the fundus of the gallbladder superiorly over the dome of the liver. Filmy adhesions between the gallbladder and omentum were lysed sharply. The infundibulum was identified and subsequently retracted laterally towards the right lower quadrant using another grasper. This maneuver exposed closed triangle. The peritoneum overlying the gallbladder infundibulum was incised with electrocautery anteriorly. It was then done so similarly in the posterior peritoneum and the posterior peritoneum was dissected out. The triangle was dissected exposing the cystic artery, cystic duct, cystic plate, and a lymph node. Once these structures were carefully identified and circumferentially divided out, the cystic artery and duct were doubly clipped and divided. The electrocautery was then used to separate the peritoneal attachments between the gallbladder and the bed of the liver. The gallbladder fossa and cystic artery were inspected to ensure no bleeding. Hemostasis was achieved with electrocautery as necessary. There was no leakage of bile from the cystic duct stump. All clips were noted to be in satisfactory position. The gallbladder once freed was placed in endoscopic retrieval bag and easily removed from the abdomen through the epigastric port. Specimen was sent to pathology for review. The fascia of the supraumbilical and epigastric ports were reapproximated using #0 Vicryl suture in a [id number] fashion. All incisions were closed using 4-0 Monocryl subcuticular sutures. The operative field was cleaned and dried. Steri-Strips and dressings were applied. No intraoperative complications were noted and estimated blood loss was minimal. All sponge and needle counts were correct at the end of the procedure. The patient was extubated and taken to the postanesthetic care unit in stable condition. Sudarshan Perez M.D. DR: HAIDER JOB#: [id number] CC:
[2016-11-12] MEDS: D5 1/2NS 1,000 ML IV SCH (05:27)
[2016-11-12 07:06] LABS: BASOPHILS % (AUTO) 0.4 % (0.0-2.0); EOSINOPHILS % (AUTO) 0.2 % (0.0-3.0); LYMPHOCYTES % (AUTO) 17.1 % (20.0-45.0); MEAN CORPUSCULAR HEMOGLOBIN 31.1 PG (27.0-31.0); MEAN CORPUSCULAR HGB CONC 33.7 G/DL (32.0-36.0); MEAN CORPUSCULAR VOLUME 92 FL (80-99); MEAN PLATELET VOLUME 7.8 FL (6.5-10.1); MONOCYTES % (AUTO) 6.2 % (1.0-10.0); NEUTROPHILS % (AUTO) 76.2 % (45.0-75.0); PLATELET COUNT 180 K/UL (150-450); RED BLOOD COUNT 3.85 M/UL (4.20-5.40); RED CELL DISTRIBUTION WIDTH 12.2 % (11.6-14.8); WHITE BLOOD COUNT 11.2 K/UL (4.8-10.8)
[2016-11-12 07:10] LABS: ALANINE AMINOTRANSFERASE 427 U/L (3-33); ALBUMIN/GLOBULIN RATIO 1.1 (1.0-2.7); ANION GAP 14 (5-15); ASPARTATE AMINO TRANSFERASE 185 U/L (5-40); CALCIUM 8.7 mg/dL (8.6-10.2); CARBON DIOXIDE 24 mEQ/L (20-30); CHLORIDE 99 mEQ/L (98-107); CREATININE 0.5 mg/dL (0.5-0.9); GLOMERULAR FILTRATION RATE > 60 mL/min (>60); HEMOLYSIS 15; POTASSIUM 3.4 mEQ/L (3.4-4.9); SODIUM 137 mEQ/L (135-145)
[2016-11-12] MEDS: Docusate 100mg cap ORAL SCH (08:26)
[2016-11-12] MEDS: Pantoprazole Inj IVP SCH (08:26)
[2016-11-12 08:31] VITALS: BP 110/57
--- NOTE | 2016-11-12 10:16 | Infectious Diseases Prog Note ---
Assessment/Plan Assessment/Plan A: The patient is a 66-year-old female, Cholecystitis SP Laparoscopic cholecystectomy. 11/11 Abnormal liver functions improving Ultrasound of the abdomen : cholelithiasis and Olmos's sign Hep panel: neg MRCP : gallbladder wall thickening although no definite pericholecystic inflammation GERD PLAN: monitor pt off of AB Rx SP IV Zosyn d# 3 Monitor CBC Monitor BMP. Monitor liver function tests GI and surg. is following Subjective Allergies: Coded Allergies: No Known Allergies (Unverified , 11/08/16) Subjective going for Sx Objective Vital Signs Last 24 Hour Vital Signs Date Time Temp Pulse Resp B/P Pulse Ox O2 Delivery O2 Flow Rate FiO2 11/12/16 08:31 98.1 77 15 110/57 97 Room Air 11/12/16 00:32 98.2 11/11/16 19:46 98.2 66 20 122/51 96 Room Air 11/11/16 16:00 97.7 71 18 125/67 98 Room Air 11/11/16 13:06 97.6 11/11/16 11:58 97.6 85 14 125/73 100 Nasal Cannula 3.0 11/11/16 11:45 83 15 127/66 100 Nasal Cannula 3.0 11/11/16 11:30 82 12 130/67 100 Nasal Cannula 3.0 11/11/16 11:15 82 12 126/68 100 Nasal Cannula 3.0 11/11/16 11:10 83 12 124/65 100 Nasal Cannula 3.0 11/11/16 11:00 86 14 132/67 100 Nasal Cannula 3.0 11/11/16 10:50 88 13 129/67 100 Nasal Cannula 3.0 11/11/16 10:40 89 20 129/66 100 Simple Mask 6.0 11/11/16 10:35 100 15 134/69 100 Simple Mask 6.0 11/11/16 10:34 106 17 100 11/11/16 10:30 97.4 105 14 141/76 100 Simple Mask 6.0 Height (Feet): 5 Height (Inches): 0.00 Weight (Pounds): 147 HEENT: anicteric Respiratory/Chest: normal breath sounds Cardiovascular: regular rhythm Abdomen: no organomegaly Laboratory Tests Test 11/12/16 05:50 White Blood Count 11.2 K/UL (4.8-10.8) #H Red Blood Count 3.85 M/UL (4.20-5.40) L Hemoglobin 12.0 G/DL (12.0-16.0) Hematocrit 35.6 % (37.0-47.0) L Mean Corpuscular Volume 92 FL (80-99) Mean Corpuscular Hemoglobin 31.1 PG (27.0-31.0) H Mean Corpuscular Hemoglobin Concent 33.7 G/DL (32.0-36.0) Red Cell Distribution Width 12.2 % (11.6-14.8) Platelet Count 180 K/UL (150-450) Mean Platelet Volume 7.8 FL (6.5-10.1) Neutrophils (%) (Auto) 76.2 % (45.0-75.0) H Lymphocytes (%) (Auto) 17.1 % (20.0-45.0) L Monocytes (%) (Auto) 6.2 % (1.0-10.0) Eosinophils (%) (Auto) 0.2 % (0.0-3.0) Basophils (%) (Auto) 0.4 % (0.0-2.0) Sodium Level 137 mEQ/L (135-145) Potassium Level 3.4 mEQ/L (3.4-4.9) Chloride Level 99 mEQ/L (98-107) Carbon Dioxide Level 24 mEQ/L (20-30) Anion Gap 14 (5-15) Blood Urea Nitrogen 6 mg/dL (7-23) L Creatinine 0.5 mg/dL (0.5-0.9) Estimat Glomerular Filtration Rate > 60 mL/min (>60) Glucose Level 133 mg/dL (74-106) H Calcium Level 8.7 mg/dL (8.6-10.2) Total Bilirubin 0.4 mg/dL (0.0-1.2) Aspartate Amino Transf (AST/SGOT) 185 U/L (5-40) H Alanine Aminotransferase (ALT/SGPT) 427 U/L (3-33) H Alkaline Phosphatase 109 U/L (35-104) H Total Protein 6.0 g/dL (6.6-8.7) L Albumin 3.2 g/dL (3.5-5.2) L Globulin 2.8 g/dL Albumin/Globulin Ratio 1.1 (1.0-2.7) Current Medications Medications (Trade) Dose Ordered Sig/Kyle Route PRN Reason Start Time Stop Time Status Last Admin Dose Admin Acetaminophen (Tylenol) 650 mg Q4H PRN ORAL T>100.5 11/08/16 12:15 12/08/16 12:14 Acetaminophen/ Hydrocodone Bitart ([place] 5/325) 1 tab Q4H PRN ORAL Moderate Pain (Pain Scale 4-6) 11/11/16 10:45 11/18/16 10:44 11/11/16 23:33 Al Hydroxide/Mg Hydroxide (Mylanta II) 30 ml Q6H PRN ORAL dyspepsia 11/08/16 12:15 12/08/16 12:14 Dextrose (Dextrose 50%) STAT PRN IV Hypoglycemia 11/08/16 12:15 12/08/16 12:14 Dextrose/Sodium Chloride (D5 0.45% NS) 1,000 ml @ 100 mls/hr Q10H IV 11/10/16 12:00 12/10/16 11:59 11/12/16 05:27 Diphenhydramine HCl (Benadryl) 25 mg Q6H PRN ORAL Itching/Pruritis 11/08/16 12:15 12/08/16 12:14 Docusate Sodium (Colace) 100 mg TWICE A DAY ORAL 11/11/16 18:00 12/11/16 17:59 11/12/16 08:26 Ibuprofen (Advil) 400 mg EVERY 4 HOURS PRN ORAL pain 11/11/16 10:45 12/11/16 10:44 Morphine Sulfate (Morphine Sulfate) 2 mg Q4H PRN IVP severe Pain (Pain Scale 7-10) 11/08/16 12:15 11/15/16 12:14 11/11/16 12:36 Nitroglycerin (Ntg) 0.4 mg Q5M X 3 DOSES PRN SL Prn Chest Pain 11/08/16 12:15 12/08/16 12:14 Ondansetron HCl (Zofran) 4 mg Q6H PRN IVP Nausea & Vomiting 11/08/16 12:15 12/08/16 12:14 Pantoprazole 40 mg 40 mg DAILY IVP 11/09/16 09:00 12/09/16 08:59 11/12/16 08:26 Polyethylene Glycol (Miralax) 17 gm HSPRN PRN ORAL Constipation 11/08/16 21:00 12/08/16 20:59 Temazepam (Restoril) 15 mg HSPRN PRN ORAL Insomnia 11/08/16 21:00 11/15/16 20:59 EMA HILLMAN M.D. November 12, 2016 10:16
--- NOTE | 2016-11-12 10:41 | General Progress Note ---
Progress Note Progress Note Surgery: patient seen and examined at bedside. no acute events since surgery. doing very well post op. pain minimal incisional as anticipated. tolerating diet. ambulatory. no n/v/f/c. AM labs reviewed and acceptable abdomen soft, nt/nd, bs+, wounds c/d/i. Diet- low fat as tolerated Rx- Tylenol#3, Senna okay to d/c home today No heavy lifting for 4-6 weeks Follow up with me in 1-2 weeks. Sudarshan Perez November 12, 2016 10:41
--- NOTE | 2016-11-12 10:48 | 48 Hour Post Anesthesia Eval ---
Post Anesthesia Evaluation Procedure: Laparoscopic cholecystectomy Date of Evaluation: November 12, 2016 Time of Evaluation: 10:40 Blood Pressure Systolic: 110 0: 57 Pulse Rate: 77 Respiratory Rate: 15 Temperature (Fahrenheit): 98.1 O2 Sat by Pulse Oximetry: 97 Airway: patent Nausea: No Vomiting: No Pain Intensity: 0 Hydration Status: adequate Cardiopulmonary Status: at baseline Mental Status/LOC: patient returned to baseline Post-Anesthesia Complications: 0 Follow-up care needed: N/A - further care as per primary team JOSE SWIFT M.D. November 12, 2016 10:48
[2016-11-12 12:00] VITALS: BP 120/73
[2016-11-12] MEDS: Norco 5mg/325mg tab ORAL PRN (12:18)
[2016-11-12] MEDS ORDERED: ACETAMINOPHEN-1 EAC1 ORAL (13:16)
[2016-11-12] MEDS ORDERED: SENNA-S TABLET1 EACH PO (13:17)
--- NOTE | 2016-11-12 13:19 | GI Progress Note ---
Assessment/Plan Problems: (1) Elevated amylase ICD Codes: R74.8 - Abnormal levels of other serum enzymes SNOMED: 743567287 (2) Elevated LFTs ICD Codes: R94.5 - Abnormal results of liver function studies SNOMED: 144577197 (3) Cholecystitis ICD Codes: K81.9 - Cholecystitis, unspecified SNOMED: 76677554, 34313379 (4) Abdominal pain ICD Codes: R10.9 - Unspecified abdominal pain SNOMED: 95914312 Qualifiers: Qualified Codes: R10.13 - Epigastric pain (5) GERD (gastroesophageal reflux disease) ICD Codes: K21.9 - Gastro-esophageal reflux disease without esophagitis SNOMED: 892521862 (6) History of appendectomy ICD Codes: Z90.49 - Acquired absence of other specified parts of digestive tract SNOMED: 697834133 Status: stable, progressing Status Narrative Discussed with Dr. Christensen. Assessment/Plan Abdominal U/S >> cholelithiasis elevated LFT's elevated amylase/normal lipase MRCP reviewed >> negative for choledocholithiasis hep panel negative ERCP deferred, will follow surgical recs IV Abx ppi monitor LFTs pain mgmt fu labs Subjective Gastrointestinal/Abdominal: Reports: abdominal pain Objective Last 24 Hour Vital Signs Date Time Temp Pulse Resp B/P Pulse Ox O2 Delivery O2 Flow Rate FiO2 11/12/16 12:00 97.9 81 20 120/73 97 Room Air 11/12/16 10:48 77 15 97 11/12/16 08:31 98.1 77 15 110/57 97 Room Air 11/12/16 00:32 98.2 11/11/16 19:46 98.2 66 20 122/51 96 Room Air 11/11/16 16:00 97.7 71 18 125/67 98 Room Air Intake and Output 11/11/16 11/12/16 19:00 07:00 Intake Total 2015 ml 1100 ml Output Total 5 ml Balance 2009 ml 1100 ml Intake Oral 415 ml IV Total 1600 ml 1100 ml Output Estimated Blood Loss 5 ml # Voids 2 1 Laboratory Tests Test 11/12/16 05:50 White Blood Count 11.2 K/UL (4.8-10.8) #H Red Blood Count 3.85 M/UL (4.20-5.40) L Hemoglobin 12.0 G/DL (12.0-16.0) Hematocrit 35.6 % (37.0-47.0) L Mean Corpuscular Volume 92 FL (80-99) Mean Corpuscular Hemoglobin 31.1 PG (27.0-31.0) H Mean Corpuscular Hemoglobin Concent 33.7 G/DL (32.0-36.0) Red Cell Distribution Width 12.2 % (11.6-14.8) Platelet Count 180 K/UL (150-450) Mean Platelet Volume 7.8 FL (6.5-10.1) Neutrophils (%) (Auto) 76.2 % (45.0-75.0) H Lymphocytes (%) (Auto) 17.1 % (20.0-45.0) L Monocytes (%) (Auto) 6.2 % (1.0-10.0) Eosinophils (%) (Auto) 0.2 % (0.0-3.0) Basophils (%) (Auto) 0.4 % (0.0-2.0) Sodium Level 137 mEQ/L (135-145) Potassium Level 3.4 mEQ/L (3.4-4.9) Chloride Level 99 mEQ/L (98-107) Carbon Dioxide Level 24 mEQ/L (20-30) Anion Gap 14 (5-15) Blood Urea Nitrogen 6 mg/dL (7-23) L Creatinine 0.5 mg/dL (0.5-0.9) Estimat Glomerular Filtration Rate > 60 mL/min (>60) Glucose Level 133 mg/dL (74-106) H Calcium Level 8.7 mg/dL (8.6-10.2) Total Bilirubin 0.4 mg/dL (0.0-1.2) Aspartate Amino Transf (AST/SGOT) 185 U/L (5-40) H Alanine Aminotransferase (ALT/SGPT) 427 U/L (3-33) H Alkaline Phosphatase 109 U/L (35-104) H Total Protein 6.0 g/dL (6.6-8.7) L Albumin 3.2 g/dL (3.5-5.2) L Globulin 2.8 g/dL Albumin/Globulin Ratio 1.1 (1.0-2.7) Height (Feet): 5 Height (Inches): 0.00 Weight (Pounds): 147 General Appearance: no apparent distress, alert Cardiovascular: normal rate Respiratory/Chest: normal breath sounds, no respiratory distress Abdominal Exam: normal bowel sounds, non tender, soft, other - surgical Qiana Obregon N.P. November 12, 2016 13:19
[2016-11-12] MEDS ORDERED: D5 1/2NS 1000ml IV ONE (13:59)
--- NOTE | 2016-11-12 22:34 | Pulmonology Progress Note ---
Assessment/Plan Problems: (1) Cholecystitis (2) Elevated LFTs (3) History of appendectomy Assessment/Plan advance diet when ok with surgeon Iv fluids continue antibiotics surgical f/u tolerated cholecystectomy amylase decreasing Subjective Allergies: Coded Allergies: No Known Allergies (Unverified , 11/08/16) Objective Last 24 Hour Vital Signs Date Time Temp Pulse Resp B/P Pulse Ox O2 Delivery O2 Flow Rate FiO2 11/12/16 12:00 97.9 81 20 120/73 97 Room Air 11/12/16 10:48 77 15 97 11/12/16 08:31 98.1 77 15 110/57 97 Room Air 11/12/16 00:32 98.2 Intake and Output 11/11/16 11/12/16 19:00 07:00 Intake Total 2014 ml 1100 ml Output Total 5 ml Balance 2009 ml 1100 ml Intake Oral 415 ml IV Total 1600 ml 1100 ml Output Estimated Blood Loss 5 ml # Voids 2 1 Objective General Appearance: WD/WN HEENT: normocephalic, atraumatic Respiratory/Chest: chest wall non-tender, Cardiovascular: normal peripheral pulses, normal rate Abdomen: normal bowel sounds, no organomegaly Genitourinary: normal external genitalia 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 Laboratory Tests 11/12/16 05:50: White Blood Count 11.2#H, Red Blood Count 3.85L, Hemoglobin 12.0, Hematocrit 35.6L, Mean Corpuscular Volume 92, Mean Corpuscular Hemoglobin 31.1H, Mean Corpuscular Hemoglobin Concent 33.7, Red Cell Distribution Width 12.2, Platelet Count 180, Mean Platelet Volume 7.8, Neutrophils (%) (Auto) 76.2H, Lymphocytes ( %) (Auto) 17.1L, Monocytes (%) (Auto) 6.2, Eosinophils (%) (Auto) 0.2, Basophils (%) (Auto) 0.4, Sodium Level 137, Potassium Level 3.4, Chloride Level 99, Carbon Dioxide Level 24, Anion Gap 14, Blood Urea Nitrogen 6L, Creatinine 0.5, Estimat Glomerular Filtration Rate > 60, Glucose Level 133H, Calcium Level 8.7, Total Bilirubin 0.4, Aspartate Amino Transf (AST/SGOT) 185H, Alanine Aminotransferase (ALT/SGPT) 427H, Alkaline Phosphatase 109H, Total Protein 6.0L , Albumin 3.2L, Globulin 2.8, Albumin/Globulin Ratio 1.1 SAFIA LORA November 12, 2016 22:34
== END 2016-11-12 14:00 | disposition home or self-care (01) | DRG 417 ==
LOC: EMR 08:30 → 4E 11:16 → EDBEDREQ 11:34
PROC: 0FT44ZZ Resection of Gallbladder, Percutaneous Endoscopic Approach (ICD-10-PCS; principal; 2016-11-11 10:30)
DX: K80.00 Calculus of gallbladder with acute cholecystitis without obstruction (principal); K85.10 Biliary acute pancreatitis without necrosis or infection; K21.9 Gastro-esophageal reflux disease without esophagitis; K57.90 Diverticulosis of intestine, part unspecified, without perforation or abscess without bleeding
CPT/HCPCS: 36415; 74183; 76700; 80053; 81003; 82150; 82248; 82962; 83690; 84484; 85007; 85025; 85610; 85730; 86705; 86709; 86803; 86850; 86900; 86901; 87040; 87340; 93005; 94003; 94150; J2405; J2765